=== PATIENT | male | born 1930 | race Caucasian/White ===

== ENCOUNTER 2017-07-07 13:29 | Inpatient (IN) | payer OTHER ==
[~2017-07-07] VITALS: Ht 180.3 cm; Wt 75.7 kg
[2017-07-07 13:29] VITALS: BP 191/89
[~2017-07-07 13:29] MED LIST: ASPI-482 PO; CLOP75TA PO; ERGO500027 PO; GABA-586 PO; HYDR28.3 TP; LEVO500T8 PO; LISI30TA4 PO; METO50TA2 PO; MICO14CR TP; NITR0.4T22 SL; OXYM30SP67 NS; PIRF267C PO
--- NOTE | 2017-07-07 13:55 | PHYS DOC ---
Past Medical History Past Medical History: CAD, COPD, GERD, High Cholesterol, Hypertension, Other Additional Past Medical Histor: PULM FIBROSIS,SUBCARINAL LYMPHADENOPATHY, Past Surgical History: Angioplasty, Other Additional Past Surgical Histo: STENTS,SINUS Alcohol Use: None Drug Use: None Adult General Chief Complaint Chief Complaint: multiple HPI HPI Patient is a 87 year old male who drove himself to the ED with multiple complaints. About a week ago, the patient was seen with chest pain and congestion and diagnosed with [facility]. He was started on doxycycline. He continues to have coughing and also discomfort across his anterior chest. 3 days ago, the patient fell in his home, with a head injury but no loss of consciousness. Patient states "it's healing up fine". Patient believes the doxycycline made him weak and fall. He says every time he gets put on antibiotics, he gets sick. Patient is concerned that maybe his pneumonia is not getting better. Patient denies feeling more short of air than usual. He does have COPD. He has home oxygen that he is supposed to use when he takes a walk. He hasn't felt up to taking a walk today. Denies fever or chills. He's had nausea but no vomiting. PCP Dr. Bakari Castaneda He also gets [facility] care at the [facility] in [place] [facility] Goldberg Review of Systems Review of Systems Constitutional: Denies fever or chills [] HENT: Denies nasal congestion or sore throat [] Respiratory: As in history of present illness Cardiovascular: He has had consistent pain across his chest since the diagnosis of pneumonia, it does not sound cardiac or cardiac complaint GI: Denies vomiting but has had nausea : Denies dysuria or hematuria [] Musculoskeletal: Denies back pain or joint pain , denies injury other than head Integument: Denies rash or skin lesions [] Neurologic: Denies headache, focal weakness or sensory changes [] Allergies Allergies Allergies Coded Allergies Type Severity Reaction Last Updated Verified Penicillins Allergy Intermediate 08/09/16 Yes Sulfa (Sulfonamide Antibiotics) Allergy Intermediate 08/09/16 Yes codeine Allergy Intermediate 08/09/16 Yes fluticasone Allergy Intermediate 08/09/16 Yes spironolactone Allergy Intermediate 08/09/16 Yes Physical Exam Physical Exam Constitutional: Well developed, well nourished, no acute distress, non-toxic appearance. Alert, ambulatory, mentating normally. Pulse ox on room air 97%. HENT: Normocephalic, bilateral external ears normal, oropharynx moist, nose normal. There is a healing abrasion and mild swelling on the center of the forehead at the hairline. Eyes: conjunctiva normal, no discharge. [] Neck: Normal range of motion, no stridor. [] Cardiovascular:Heart rate regular rhythm, no murmur [] Lungs & Thorax: Bilateral breath sounds clear to auscultation, mildly prolonged expiratory phase, good air movement throughout. Skin: Warm, dry, no erythema, no rash. [] Extremities: No tenderness, no cyanosis, no clubbing, ROM intact, no edema. [] Neurologic: Alert and oriented X 3, normal motor function, normal sensory function, no focal deficits noted. [] Current Patient Data Vital Signs Vital Signs Date Time Temp Pulse Resp B/P (MAP) Pulse Ox O2 Delivery O2 Flow Rate FiO2 07/07/17 13:29 97.7 61 16 191/89 (123) 97 Room Air 97.7 Lab Values Laboratory Tests Test 07/07/17 13:50 07/07/17 15:00 White Blood Count 14.2 x10^3/uL (4.0-11.0) H Red Blood Count 4.55 x10^6/uL (4.30-5.70) Hemoglobin 12.9 g/dL (13.0-17.5) L Hematocrit 39.6 % (39.0-53.0) Mean Corpuscular Volume 87 fL (79-100) Mean Corpuscular Hemoglobin 28 pg (25-35) Mean Corpuscular Hemoglobin Concent 33 g/dL (31-37) Red Cell Distribution Width 13.5 % (11.5-14.5) Platelet Count 324 x10^3/uL (140-400) # Neutrophils (%) (Auto) 65 % (31-73) Lymphocytes (%) (Auto) 22 % (24-48) L Monocytes (%) (Auto) 10 % (0-9) H Eosinophils (%) (Auto) 3 % (0-3) Basophils (%) (Auto) 0 % (0-3) Neutrophils # (Auto) 9.2 x10^3uL (1.8-7.7) H Lymphocytes # (Auto) 3.1 x10^3/uL (1.0-4.8) Monocytes # (Auto) 1.4 x10^3/uL (0.0-1.1) H Eosinophils # (Auto) 0.4 x10^3/uL (0.0-0.7) Basophils # (Auto) 0.0 x10^3/uL (0.0-0.2) Sodium Level 138 mmol/L (136-145) Potassium Level 4.0 mmol/L (3.5-5.1) Chloride Level 100 mmol/L (98-107) Carbon Dioxide Level 28 mmol/L (21-32) Anion Gap 10 (6-14) Blood Urea Nitrogen 51 mg/dL (8-26) H Creatinine 4.1 mg/dL (0.7-1.3) H Estimated GFR (Cockcroft-Gault) 13.9 BUN/Creatinine Ratio 12 (6-20) Glucose Level 126 mg/dL (70-99) H Calcium Level 8.7 mg/dL (8.5-10.1) Total Bilirubin 0.2 mg/dL (0.2-1.0) Aspartate Amino Transferase (AST) 19 U/L (15-37) Alanine Aminotransferase (ALT) 25 U/L (16-63) Alkaline Phosphatase 74 U/L (46-116) KX-Gix-I-Type Natriuretic Peptide 1643 pg/mL (0-449) H Total Protein 8.0 g/dL (6.4-8.2) Albumin 3.1 g/dL (3.4-5.0) L Albumin/Globulin Ratio 0.6 (1.0-1.7) L Urine Collection Type Unknown Urine Color Yellow Urine Clarity Clear Urine pH 5.5 Urine Specific [place] 1.015 Urine Protein >=300 mg/dL (NEG-TRACE) Urine Glucose (UA) 100 mg/dL (NEG) Urine Ketones (Stick) Negative mg/dL (NEG) Urine Blood Moderate (NEG) Urine Nitrite Negative (NEG) Urine Bilirubin Negative (NEG) Urine Urobilinogen Dipstick 0.2 mg/dL (0.2 mg/dL) Urine Leukocyte Esterase Negative (NEG) Urine RBC 6-10 /HPF (0-2) Urine WBC 0 /HPF (0-4) Urine Squamous Epithelial Cells Occ /LPF Urine Bacteria 0 /HPF (0-FEW) Urine Hyaline Casts Few /HPF Urine Mucus Mod /LPF Laboratory Tests 07/07/17 13:50 Laboratory Tests 07/07/17 13:50 EKG EKG [] Radiology/Procedures Radiology/Procedures [] Course & Med Decision Making Course & Med Decision Making Pertinent Labs and Imaging studies reviewed. (See chart for details) 87-year-old male presents ambulatory to the ED concerned that he may still have pneumonia, may not be getting better. He was started about a week ago today on doxycycline and has been taking it as directed. He doesn't feel better. He also notes that he fell 3 days ago and bumped his head without loss of consciousness. I recommended that we will check some lab tests, chest x-ray, and CT scan of his head. He is agreeable to the plan "as long as I don't have to be admitted". Chest x-ray reviewed by me, I do see an area in the left lower lobe that I believe is more opacity than a previous chest x-ray. No pulmonary edema. CT scan of the head read by the radiologist. No acute findings. Labs concerning for leukocytosis with a white count of 14, also worsened creatinine at 4.1. I discussed the patient with Dr. Bakari Castaneda and he and I agreed that the patient should be hospitalized with pneumonia that has failed outpatient antibiotics as well as worsened renal function. I went to discuss this plan with the patient. The patient adamantly refuses to be admitted to the hospital. He feels fine. He doesn't feel like he needs to be admitted. He is not that sick. He also has a cat at home and no one to take care of the cat. He absolutely refused to consider being admitted to the hospital. He states that he gets to feeling worse, he will make arrangements for someone to take care of his cat and come back to be admitted. Patient is not hypoxic, he is not dyspneic. He has not been vomiting. Although I prefer to hospitalize him, I don't think it's entirely unreasonable for him to try a different antibiotic as an outpatient. We talked about pulmonary toilet. He does have a nebulizer at home and I will write him for some albuterol for that. I discussed discharge with Dr. Castaneda. We agreed to discharge the patient on renally dosed Levaquin at 500 mg every other day. He was given his first dose here in the ED. Dr. Castaneda will be glad to see him back in the office in 2 or 3 days for recheck, sooner if worse. See instructions for plan. [] Micheal Disclaimer Dragon Disclaimer This electronic medical record was generated, in whole or in part, using a voice recognition dictation system. Departure Departure Impression: Primary Impression: Pneumonia Additional Impression: Acute renal insufficiency Disposition: HOME, SELF-CARE Admitting Physician: Bakari Castaneda Condition: STABLE Referrals: BAKARI CASTANEDA MD (PCP) Patient Instructions: Pneumonia, Adult Additional Instructions: As we discussed, I would like to admit you to the hospital for treatment of pneumonia, but you will not be admitted to the hospital. If you get worse, if your breathing gets worse or you feel worse, return to emergency. I discussed your case with Dr. Castaneda and we made the plan for your care together. He would like to see you back in the office in 2 or 3 days for a recheck. Call tomorrow for an appointment in 2 or 3 days. Or, if you prefer, you may have a recheck at the [facility] if they can get you in. We will treat your pneumonia with a different antibiotic. Stop taking doxycycline. Instead, we will put you on Levaquin. Because of your bad kidney function, you will take Levaquin only every other day. You had your first dose here in the emergency department. Your next dose is on Saturday around noon, then , then Saturday. To help clear the infection out of your lungs, and help your lungs work better, take a breathing treatment 4 times a day until you are feeling better. Rest at home and drink plenty of fluids. Return if you feel worse, if you are short of air, or if you are weaker or vomiting. Scripts Albuterol Sulfate (ALBUTEROL SULFATE NEB SOLN) 1.25 Mg/3 Ml Vial.neb 1 VIAL NEB Q4HRS for Wheezing, pneumonia, #75 ML Take a breathing treatment 4 times a day while being treated for pneumonia Prov: MAYRA CHUNG MD 07/07/17 Levofloxacin (LEVAQUIN) 500 Mg Tablet 1 TAB PO QODAY for pneumonia, #3 TAB Renal dosing every other day Had first dose in the emergency department 07/07 Next dose is due 8/15 Prov: MAYRA CHUNG MD 07/07/17 Problem Qualifiers MAYRA CHUNG MD Jul 07, 2017 13:55
[2017-07-07 14:00] LABS: BASO % 0 % (0-3); EOS % 3 % (0-3); HEMATOCRIT 39.6 % (39.0-53.0); HEMOGLOBIN 12.9 g/dL (13.0-17.5); LYMPH # 3.1 x10^3/uL (1.0-4.8); LYMPH % 22 % (24-48); MEAN CORPUSCULAR HEMOGLOBIN 28 pg (25-35); MEAN CORPUSCULAR HGB CONC 33 g/dL (31-37); MEAN CORPUSCULAR VOLUME 87 fL (79-100); MONO % 10 % (0-9); NEUT % 65 % (31-73); PLATELET COUNT 324 x10^3/uL (140-400); RED BLOOD COUNT 4.55 x10^6/uL (4.30-5.70); RED CELL DISTRIBUTION WIDTH 13.5 % (11.5-14.5); WHITE BLOOD COUNT 14.2 x10^3/uL (4.0-11.0)
[2017-07-07 14:12] LABS: CALCIUM 8.7 mg/dL (8.5-10.1); CREATININE 4.1 mg/dL (0.7-1.3); GFR 13.9
[2017-07-07 14:18] LABS: ALBUMIN 3.1 g/dL (3.4-5.0); ALBUMIN/GLOBULIN RATIO 0.6 (1.0-1.7); TOTAL BILIRUBIN 0.2 mg/dL (0.2-1.0)
--- NOTE | 2017-07-07 15:07 | RAD ---
CT scan of the head without contrast 07/07/2017 Clinical History: Fall with forehead swelling. Technique: Unenhanced, contiguous, 5 mm axial sections were obtained through the head. One or more of the following individualized dose reduction techniques were utilized for this study: 1. Automated exposure control. 2. Adjustment of the mA and/or kV according to patient size. 3. Use of iterative reconstruction technique. Findings: No previous studies are available for comparison. There is generalized parenchymal atrophy. Small scattered areas of decreased attenuation are seen within the periventricular and subcortical white matter of both cerebral hemispheres consistent with areas of small vessel ischemic disease. No acute parenchymal abnormality is seen. No extra-axial fluid collection is noted. No skull fracture is seen. Impression: . No acute intracranial abnormality is seen.
[2017-07-07 15:12] LABS: BILIRUBIN,URINE NEGATIVE (NEG); GLUCOSE,URINE 100 mg/dL (NEG); NITRITE,URINE NEGATIVE (NEG); PH,URINE 5.5; PROTEIN,URINE >=300 mg/dL (NEG-TRACE); UROBILINOGEN,URINE 0.2 mg/dL (0.2 mg/dL)
--- NOTE | 2017-07-07 15:17 | RAD ---
PA and lateral chest radiographs 07/07/2017 Clinical history: Cough and shortness of breath. PA and lateral digital radiographs of the chest were obtained. Comparison study is dated 08/09/2016. The cardiac silhouette is mildly enlarged. The thoracic aorta is tortuous. Atherosclerotic calcification of the thoracic aorta is seen. Emphysematous changes are seen involving both lungs. Areas of scarring are seen involving the right midlung and left lower lobe. No acute pulmonary infiltrate is seen. No pneumothorax or pleural effusion is noted. Degenerative changes are seen involving the thoracic spine. Impression: No acute pulmonary infiltrate is seen.
[2017-07-07 15:20] LABS: BACTERIA,URINE 0 /HPF (0-FEW); SQUAMOUS EPITHELIAL CELL,UR OCC /LPF; WBC,URINE 0 /HPF (0-4)
[2017-07-07] MEDS ORDERED: LEVO500T59 PO (15:37)
[2017-07-07] MEDS ORDERED: ALBU1.25 NEB (15:37)
[2017-07-07] MEDS ORDERED: IPRATRPIUM/ALBUTEROL 0.5/2.5MG 3 ML NEBU. NEB ONE (15:45)
--- NOTE | 2017-07-08 01:29 | ACF ---
Admission Forms Criteria PNEUMONIA, COMMUNITY ACQUIRED Clinical Indications for Admission to Inpatient Care (Place 'X' for any and all applicable criteria): Admission to inpatient status for two midnights or more is indicated for ANY ONE of the following (1)(2)(3): [ ]I. Hypoxia [ ]II. Hemodynamic instability [ ]III. Altered mental status that is severe or persistent [ ]IV. Dehydration that is severe or persistent. [ ]V. Bacteremia [X ]. Moderate-risk or high-risk category patients (Pneumonia Severity Index ( PSI) class IV or V, or CURB-65 score of 3 or greater). [ ]VII. Intermediate-risk category patients (e.g., PSI class III or CURB-65 score 2) who do not improve with outpatient and observation care treatment [ ]VIII. Outpatient treatment failure as indicated by 1 or more of the following(9): [ ]a) Failure to respond to antibiotic (eg, resistant organism) [ ]b) Clinically significant adverse effects from medication (eg, vomiting) [ ]c) Complications of pneumonia (eg, empyema, bacteremia) [ ]d) Significant worsening of comorbid cond necessitating inpatient care (eg, chronic heart failure) [ ]IX. Appropriate diagnostic testing and treatment unavailable in outpatient or recovery facility (eg, testing or infection control measures unavailable) [ ]X. Respiratory finding (eg. tachypnea) that do not respond to outpatient observation care treatment [ ]XI. Complicated pleural effusions (eg, emphysema, exudative, loculated) [ ]XII. Immunocompromised patients (e.g., AIDS, chronic steroid use) at moderate or high risk based on clinical evaluation. Extended stay beyond goal length of stay may be needed for (20) [ ]a) Unclear diagnosis [ ]b) Pleural disease [ ]c) Severe pneumonia or treatment failure [ ]d) Respiratory failure [ ]e) New onset hyponatremia (serum Na concentration less than 135 mEq/L(mmol/ L) [ ]f) Clinically significant comorbid illness (eg, heart failure, atrial fibrillation with rapid heart rate, alcohol withdrawal, renal insufficiency)(34)(35) [ ]g) Comorbid acute exacerbation of COPD(36) [ ]h) Concomitant diagnosis of malignancy [ ]i) Concomitant altered mental status [ ]j) Culture-identified Gram-negative or antibiotic-resistant organism (eg, Pseudomonas, methicillin-resistant Staphylococcus aureus MRSA)(30) [ ]k) Healthcare-associated pneumonia (36) The original [facility] content created by [facility] has been revised. The portions of the content which have been revised are identified through the use of italic text, and [facility] has neither reviewed nor approved the modified material. All other unmodified content is copyright [facility]. Please see references footnoted in the original [email or web address] edition 2015 Admission Criteria Met?: Yes IRASEMA DIALLO Jul 08, 2017 01:29
== END 2017-07-07 18:27 | disposition left against medical advice (07) | DRG 194 ==
LOC: ER 13:29 → 6 SOUTH 15:15
PROVIDERS: ADMIT Family Medicine; ATTEND Family Medicine
DX: J18.9 Pneumonia, unspecified organism (principal); J44.0 Chronic obstructive pulmonary disease with (acute) lower respiratory infection; I25.10 Atherosclerotic heart disease of native coronary artery without angina pectoris; I10 Essential (primary) hypertension; E78.00 Pure hypercholesterolemia, unspecified; J84.10 Pulmonary fibrosis, unspecified; K21.9 Gastro-esophageal reflux disease without esophagitis; Z53.21 Procedure and treatment not carried out due to patient leaving prior to being seen by health care provider; N28.9 Disorder of kidney and ureter, unspecified; Z99.81 Dependence on supplemental oxygen; Z88.5 Allergy status to narcotic agent; Z88.0 Allergy status to penicillin; Z88.2 Allergy status to sulfonamides; Z88.8 Allergy status to other drugs, medicaments and biological substances
CPT/HCPCS: 36415; 70450; 71020; 80053; 81001; 83880; 85025; 94250; 94640; 99285; J7620

== ENCOUNTER 2018-11-19 08:54 | Emergency (ER) | payer OTHER ==
[~2018-11-19] VITALS: Ht 175.3 cm; Wt 74.8 kg
[~2018-11-19 08:54] MED LIST changes: +ALBU1.25 NEB; +CARB15DR3 EACHEYE; +CEFD300C PO; +CHOL10003 PO; +DOCU-109 PO; +FURO80TA72 PO; -GABA-586 PO; +GABA300C18 PO; +LEVO500T59 PO; +LISI-130 PO; +METO100T7 PO; -METO50TA2 PO; +METO50TA6 PO; +[UNRECOGNIZED DRUG - CODE] PO
[2018-11-19 10:09] VITALS: BP 172/71
--- NOTE | 2018-11-19 10:47 | PHYS DOC ---
Past Medical History Past Medical History: Renal Failure Additional Past Medical Histor: PULM FIBROSIS,SUBCARINAL LYMPHADENOPATHY, Past Surgical History: Other Additional Past Surgical Histo: STENTS,SINUS, peritoneal dialysis Alcohol Use: None Drug Use: None Adult General Chief Complaint Chief Complaint: DIALYSIS PROBLEM HPI HPI Patient is a 88 year old male who presents with a request to have his dialysis catheter removed. He states that he went to dialysis and told him to remove the catheter. They stated he would have to go to the hospital. I explained to him that we do not pull dialysis catheters in the emergency department. We would do a dressing change. The patient states that he no longer needs the catheter because his blood pressure is under control. I explained to him that the dialysis catheter was not control his blood pressure but rather to clean his blood because his kidneys aren't working. I did explicitly stated to the patient that if the catheter was removed he would not be able to undergo dialysis and would subsequently . The patient's reply was "I'll anyway." Review of Systems Review of Systems Constitutional: Denies fever or chills [] Eyes: Denies change in visual acuity, redness, or eye pain [] HENT: Denies nasal congestion or sore throat [] Respiratory: Denies cough or shortness of breath [] Cardiovascular: No additional information not addressed in HPI [] GI: Denies abdominal pain, nausea, vomiting, bloody stools or diarrhea [] : Denies dysuria or hematuria [] Musculoskeletal: Denies back pain or joint pain [] Integument: Denies rash or skin lesions [] Neurologic: Denies headache, focal weakness or sensory changes [] Endocrine: Denies polyuria or polydipsia [] All other systems were reviewed and found to be within normal limits, except as documented in this note. Allergies Allergies Allergies Coded Allergies Type Severity Reaction Last Updated Verified Penicillins Allergy Intermediate 08/09/16 Yes Sulfa (Sulfonamide Antibiotics) Allergy Intermediate 08/09/16 Yes cephalexin Allergy Intermediate 10/27/18 Yes ciprofloxacin Allergy Intermediate 10/23/18 Yes doxycycline Allergy Intermediate 10/23/18 Yes erythromycin base Allergy Intermediate 10/23/18 Yes fluticasone Allergy Intermediate 08/09/16 Yes isosorbide Allergy Intermediate 10/23/18 Yes nifedipine Allergy Intermediate 10/23/18 Yes prednisone Allergy Intermediate 10/23/18 Yes salmeterol Allergy Intermediate DUONEB [place] 8/13/17 Yes spironolactone Allergy Intermediate 08/09/16 Yes tamsulosin Allergy Intermediate 10/23/18 Yes codeine Adverse Reaction Intermediate Nausea/Vomiting 10/25/18 Yes Physical Exam Physical Exam Constitutional: Well developed, well nourished, no acute distress, non-toxic appearance. [] HENT: Normocephalic, atraumatic, bilateral external ears normal, oropharynx moist, no oral exudates, nose normal. [] Eyes: PERRLA, EOMI, conjunctiva normal, no discharge. [] Neck: Normal range of motion, no tenderness, supple, no stridor. [] Cardiovascular:Heart rate regular rhythm, no murmur [] Lungs & Thorax: Bilateral breath sounds clear to auscultation [] Abdomen: Bowel sounds normal, soft, no tenderness, no masses, no pulsatile masses. [] Skin: Warm, dry, no erythema, no rash. [] Back: No tenderness, no CVA tenderness. [] Extremities: No tenderness, no cyanosis, no clubbing, ROM intact, no edema. [] Neurologic: Alert and oriented X 3, normal motor function, normal sensory function, no focal deficits noted. [] Psychologic: Affect normal, judgement normal, mood normal. [] Current Patient Data Vital Signs Vital Signs Date Time Temp Pulse Resp B/P (MAP) Pulse Ox O2 Delivery O2 Flow Rate FiO2 11/19/18 10:09 97.5 54 18 172/71 (104) 95 Room Air 97.5 EKG EKG [] Radiology/Procedures Radiology/Procedures [] Course & Med Decision Making Course & Med Decision Making Pertinent Labs and Imaging studies reviewed. (See chart for details) []I spoke with the nurse practitioner at the [place] who arranged for the patient to meet with nephrology on site. The patient's catheter dressing was changed. The patient is to report directly to the office in [place] at the [place]. The patient is in agreement with this plan. Staff Physician Addendum: I was working in the ER during the course of this patient's visit. I was available for consultation as needed, but I was not directly involved in the care of this patient. Dragon Disclaimer Dragon Disclaimer This electronic medical record was generated, in whole or in part, using a voice recognition dictation system. 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 DAMIEN SEBASTIAN APRN Nov 19, 2018 10:47 MICHELET FENTON MD Nov 24, 2018 20:15
== END 2018-11-19 11:15 | disposition home or self-care (01) ==
LOC: ER 08:54
DX: Z49.01 Encounter for fitting and adjustment of extracorporeal dialysis catheter (principal); N19 Unspecified kidney failure; Z88.0 Allergy status to penicillin; Z88.1 Allergy status to other antibiotic agents; Z88.2 Allergy status to sulfonamides; Z88.5 Allergy status to narcotic agent; Z88.8 Allergy status to other drugs, medicaments and biological substances
CPT/HCPCS: 99283

== ENCOUNTER 2018-11-21 09:30 | Emergency (ER) | payer OTHER ==
[~2018-11-21] VITALS: Ht 175.3 cm; Wt 69.4 kg
--- NOTE | 2018-11-21 10:28 | RAD ---
Chest radiograph 11/21/2018 10:02 AM INDICATION: Missed dialysis COMPARISON: October 27, 2018 TECHNIQUE: Frontal and lateral views of the chest are provided. FINDINGS: The cardiomediastinal silhouette is within normal limits. Right chest wall dialysis catheter is in similar position. There are no pleural effusions. There is no pulmonary vascular congestion. There is no pneumothorax. Mild interstitial changes appear chronic. There may be subtle increase interstitial opacity in the lateral inferior aspect of the right upper lobe. No significant osseous abnormality is identified. IMPRESSION: Chronic interstitial changes with more focal interstitial opacity in the lateral right upper lobe. Findings may represent subsegmental atelectasis versus developing infiltrate. Electronically signed by: Gayle Beverly MD (11/21/2018 10:25 AM) [id number]
[2018-11-21 10:50] LABS: BASO # 0.1 x10^3/uL (0.0-0.2); BASO % 1 % (0-3); EOS # 0.4 x10^3/uL (0.0-0.7); EOS % 4 % (0-3); HEMATOCRIT 37.8 % (39.0-53.0); HEMOGLOBIN 12.9 g/dL (13.0-17.5); LYMPH # 2.2 x10^3/uL (1.0-4.8); LYMPH % 24 % (24-48); MEAN CORPUSCULAR HEMOGLOBIN 30 pg (25-35); MEAN CORPUSCULAR HGB CONC 34 g/dL (31-37); MEAN CORPUSCULAR VOLUME 89 fL (79-100); MONO # 0.8 x10^3/uL (0.0-1.1); MONO % 9 % (0-9); NEUT # 5.6 x10^3uL (1.8-7.7); NEUT % 62 % (31-73); PLATELET COUNT 237 x10^3/uL (140-400); RED BLOOD COUNT 4.26 x10^6/uL (4.30-5.70); RED CELL DISTRIBUTION WIDTH 13.1 % (11.5-14.5)
[2018-11-21 11:03] LABS: CALCIUM 8.9 mg/dL (8.5-10.1); CREATININE 6.2 mg/dL (0.7-1.3); GFR 8.6; POTASSIUM 4.1 mmol/L (3.5-5.1)
--- NOTE | 2018-11-21 11:07 | EKG ---
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
[2018-11-21 11:08] LABS: ALBUMIN 3.3 g/dL (3.4-5.0); ALBUMIN/GLOBULIN RATIO 0.7 (1.0-1.7); TOTAL BILIRUBIN 0.4 mg/dL (0.2-1.0); TOTAL PROTEIN 7.9 g/dL (6.4-8.2)
[2018-11-21 11:09] VITALS: BP 151/69
--- NOTE | 2018-11-21 11:31 | PHYS DOC ---
Past Medical History Past Medical History: Hypertension, Renal Failure Additional Past Medical Histor: PULM FIBROSIS,SUBCARINAL LYMPHADENOPATHY, Past Surgical History: Other Additional Past Surgical Histo: STENTS,SINUS, peritoneal dialysis, R ant chest dialysis shunt Alcohol Use: None Drug Use: None Adult General Chief Complaint Chief Complaint: OTHER COMPLAINTS HPI HPI 88-year-old male presenting to the emergency department today after being told to come in to have his labs drawn. He is not had dialysis for approximately 2 weeks. He denies any symptoms. Onset today. Location generalized. Duration constant. No alleviating factors. Review of systems is negative for chest pain shortness of breath fevers chills headache nausea vomiting abdominal pain dysuria diarrhea. All other review of systems is negative unless otherwise noted in history of present illness. ED course: 88-year-old male presenting the emergency department today to have his labs drawn and after missing dialysis. Vitals unremarkable. Patient has elevated proBNP but is not requiring oxygen and has normal work of breathing with clear lungs bilaterally. Creatinine is elevated consistent with his renal failure. Potassium is 4.1. EKG obtained and reviewed by myself shows sinus rhythm with a regular rate. ST segments congruent. Not suggestive of ACS. Otherwise lipase is minimally elevated. Patient remains asymptomatic in the emergency department. We will refer him to get dialysis as previously scheduled. He will only be able to get dialysis on Saturday so I instructed him to come back in 2 days for repeat blood tests to ensure that his K+ is not going up. The patient has been examined and was not found to have an emergency medical condition. The patient was then discharged home in stable condition to follow up with their primary care physician over the next 1-2 days. They were to return if their symptoms worsened or if they were concerned for any reason. They were also instructed to return to the emergency department if they were unable to get the recommended and appropriate follow-up. [id number] discharge instructions and return precautions were given. Patient's questions were answered to their satisfaction. Patient is comfortable with plan. Review of Systems Review of Systems SEE ABOVE. Allergies Allergies Allergies Coded Allergies Type Severity Reaction Last Updated Verified Penicillins Allergy Intermediate 08/09/16 Yes Sulfa (Sulfonamide Antibiotics) Allergy Intermediate 08/09/16 Yes cephalexin Allergy Intermediate 10/27/18 Yes ciprofloxacin Allergy Intermediate 10/23/18 Yes doxycycline Allergy Intermediate 10/23/18 Yes erythromycin base Allergy Intermediate 10/23/18 Yes fluticasone Allergy Intermediate 08/09/16 Yes isosorbide Allergy Intermediate 10/23/18 Yes nifedipine Allergy Intermediate 10/23/18 Yes prednisone Allergy Intermediate 10/23/18 Yes salmeterol Allergy Intermediate DUONEB [place] 07/07/17 Yes spironolactone Allergy Intermediate 08/09/16 Yes tamsulosin Allergy Intermediate 10/23/18 Yes codeine Adverse Reaction Intermediate Nausea/Vomiting 10/25/18 Yes Physical Exam Physical Exam SEE ABOVE Constitutional: Well developed, well nourished, no acute distress, non-toxic appearance. HENT: Normocephalic, atraumatic, bilateral external ears normal, oropharynx moist, no oral exudates, nose normal. [] Eyes: PERRLA, EOMI, conjunctiva normal, no discharge. Neck: Normal range of motion, no tenderness, supple, no stridor. [] Cardiovascular:Heart rate regular rhythm, no murmur Lungs & Thorax: Bilateral breath sounds clear to auscultation [] Abdomen: Bowel sounds normal, soft, no tenderness, no masses, no pulsatile masses. Skin: Warm, dry, no erythema, no rash. [] Back: No tenderness, no CVA tenderness. Extremities: No tenderness, no cyanosis, no clubbing, ROM intact, no edema. Neurologic: Alert and oriented X 3, normal motor function, normal sensory function, no focal deficits noted. [] Psychologic: Affect normal, judgement normal, mood normal. [] Current Patient Data Vital Signs Vital Signs Date Time Temp Pulse Resp B/P (MAP) Pulse Ox O2 Delivery O2 Flow Rate FiO2 11/21/18 11:09 52 19 151/69 (96) 97 Room Air 11/21/18 09:30 98.0 98.0 Lab Values Laboratory Tests Test 11/21/18 10:33 White Blood Count 9.0 x10^3/uL (4.0-11.0) Red Blood Count 4.26 x10^6/uL (4.30-5.70) L Hemoglobin 12.9 g/dL (13.0-17.5) L Hematocrit 37.8 % (39.0-53.0) L Mean Corpuscular Volume 89 fL (79-100) Mean Corpuscular Hemoglobin 30 pg (25-35) Mean Corpuscular Hemoglobin Concent 34 g/dL (31-37) Red Cell Distribution Width 13.1 % (11.5-14.5) Platelet Count 237 x10^3/uL (140-400) Neutrophils (%) (Auto) 62 % (31-73) Lymphocytes (%) (Auto) 24 % (24-48) Monocytes (%) (Auto) 9 % (0-9) Eosinophils (%) (Auto) 4 % (0-3) H Basophils (%) (Auto) 1 % (0-3) Neutrophils # (Auto) 5.6 x10^3uL (1.8-7.7) Lymphocytes # (Auto) 2.2 x10^3/uL (1.0-4.8) Monocytes # (Auto) 0.8 x10^3/uL (0.0-1.1) Eosinophils # (Auto) 0.4 x10^3/uL (0.0-0.7) Basophils # (Auto) 0.1 x10^3/uL (0.0-0.2) Sodium Level 141 mmol/L (136-145) Potassium Level 4.1 mmol/L (3.5-5.1) Chloride Level 100 mmol/L (98-107) Carbon Dioxide Level 29 mmol/L (21-32) Anion Gap 12 (6-14) Blood Urea Nitrogen 52 mg/dL (8-26) H Creatinine 6.2 mg/dL (0.7-1.3) H Estimated GFR (Cockcroft-Gault) 8.6 BUN/Creatinine Ratio 8 (6-20) Glucose Level 102 mg/dL (70-99) H Calcium Level 8.9 mg/dL (8.5-10.1) Total Bilirubin 0.4 mg/dL (0.2-1.0) Aspartate Amino Transferase (AST) 19 U/L (15-37) Alanine Aminotransferase (ALT) 17 U/L (16-63) Alkaline Phosphatase 78 U/L (46-116) Troponin I Quantitative < 0.017 ng/mL (0.000-0.055) HL-Dvu-R-Type Natriuretic Peptide 3515 pg/mL (0-449) H Total Protein 7.9 g/dL (6.4-8.2) Albumin 3.3 g/dL (3.4-5.0) L Albumin/Globulin Ratio 0.7 (1.0-1.7) L Lipase 653 U/L (73-393) H Laboratory Tests 11/21/18 10:33 Laboratory Tests 11/21/18 10:33 EKG EKG [] Radiology/Procedures Radiology/Procedures [] Course & Med Decision Making Course & Med Decision Making Pertinent Labs and Imaging studies reviewed. (See chart for details) [] Dragon Disclaimer Dragon Disclaimer This electronic medical record was generated, in whole or in part, using a voice recognition dictation system. Departure Departure Impression: Primary Impression: Encounter for medical screening examination Disposition: HOME, SELF-CARE Condition: STABLE Referrals: EARL ROLON (PCP) Patient Instructions: Kidney Failure Additional Instructions: Thank you for allowing us to participate in your care today. Return to the emergency department you have any new or worsening symptoms, or if you are concerned for any reason. Return to emergency department if you have any new or concerning symptoms including but not limited to fever, chills, nausea, vomiting, intractable pain, any new rashes, chest pain, shortness of air , uncontrolled bleeding, difficulty breathing, and/or vision loss. Follow up with to be dialysed in 1-2 days. If you cannot get dialyzed within the next 2 days, return to the emergency department for reexamination. Call your Primary Doctor tomorrow and inform them of your visit today. This is important because your potassium level can go up without dialysis and it will need to be rechecked. If you do not have a primary care provider we are happy to provide you with a list of our primary care providers contact information. This condition should be evaluated by your primary care physician and any recommended consulting services for continued management within 2 days after discharge. If at any time, you are having difficulty getting into your primary care doctor or a specialist, return to the emergency department. TERRI SORIANO MD Nov 21, 2018 11:31
== END 2018-11-21 11:47 | disposition home or self-care (01) ==
LOC: ER 09:30
DX: Z00.8 Encounter for other general examination (principal); Z88.0 Allergy status to penicillin; Z88.1 Allergy status to other antibiotic agents; Z88.2 Allergy status to sulfonamides; Z88.5 Allergy status to narcotic agent; Z88.8 Allergy status to other drugs, medicaments and biological substances; I10 Essential (primary) hypertension
CPT/HCPCS: 36415; 71046; 80053; 83690; 83880; 84484; 85025; 93005; 99284-25

== ENCOUNTER 2020-11-19 18:58 | Inpatient (IN) | payer MEDICARE, OTHER ==
[~2020-11-19] VITALS: Ht 177.8 cm; Wt 65.3 kg
[~2020-11-19 18:58] MED LIST changes: -MICO14CR TP; +MICO14CR3 TP; -PIRF267C PO; +PIRF267C2 PO
[2020-11-19] MEDS ORDERED: VANCOMYCIN 1GM IVPB FOR OMNI 250 ML IV ONE (19:30)
--- NOTE | 2020-11-19 19:45 | PHYS DOC ---
Past Medical History Past Medical History: Hypertension, Renal Failure Additional Past Medical Histor: PULM FIBROSIS,SUBCARINAL LYMPHADENOPATHY, Past Surgical History: Other Additional Past Surgical Histo: STENTS,SINUS, peritoneal dialysis, R ant chest dialysis shunt Smoking Status: Never Smoker Alcohol Use: None Drug Use: None General Adult EDM: Chief Complaint: TOE PROBLEM HPI: HPI: Patient is a 89 year old male who arrives via EMS with a chief complaint of swelling, necrosis and erythema to the right foot that originates at the right third toe and radiates up the foot. Patient reportedly is on hospice but was sent in for evaluation for of this necrotic toe and states that he cannot take antibiotics. Patient describes mild to moderate pain is worse with palpation. There is been no reported fever. Patient is described as a discomfort. Review of Systems: Review of Systems: Constitutional: Denies fever or chills. [] Eyes: Denies change in visual acuity. [] HENT: Denies nasal congestion or sore throat. [] Respiratory: Has a cough but no shortness of breath. [] Cardiovascular: Denies chest pain or edema. [] GI: Denies abdominal pain, nausea, vomiting, bloody stools or diarrhea. [] : Denies dysuria. [] Musculoskeletal: Denies back pain or joint pain. [] Integument: Mild erythema and necrosis to the right middle toe with spreading erythema of the foot Neurologic: Denies headache, focal weakness or sensory changes. [] Endocrine: Denies polyuria or polydipsia. [] Lymphatic: Denies swollen glands. [] Psychiatric: Denies depression or anxiety. [] Heart Score: Risk Factors: Risk Factors: DM, Current or recent (<one month) smoker, HTN, HLP, family history of CAD, obesity. Risk Scores: Score 0 - 3: 2.5% MACE over next 6 weeks - Discharge Home Score 4 - 6: 20.3% MACE over next 6 weeks - Admit for Clinical Observation Score 7 - 10: 72.7% MACE over next 6 weeks - Early Invasive Strategies Current Medications: Current Medications Medications (Trade) Dose Ordered Sig/Andrés Start Time Stop Time Status Last Admin Dose Admin Vancomycin HCl 250 ml @ 250 mls/hr 1X ONCE 11/19/20 19:30 11/19/20 20:29 Allergies: Allergies: Allergies Coded Allergies Type Severity Reaction Last Updated Verified Penicillins Allergy Intermediate 08/09/16 Yes Sulfa (Sulfonamide Antibiotics) Allergy Intermediate 08/09/16 Yes cephalexin Allergy Intermediate 10/27/18 Yes ciprofloxacin Allergy Intermediate 10/23/18 Yes doxycycline Allergy Intermediate 10/23/18 Yes erythromycin base Allergy Intermediate 10/23/18 Yes fluticasone Allergy Intermediate 08/09/16 Yes isosorbide Allergy Intermediate 10/23/18 Yes nifedipine Allergy Intermediate 10/23/18 Yes prednisone Allergy Intermediate 10/23/18 Yes salmeterol Allergy Intermediate DUONEB OK 07/07/17 Yes spironolactone Allergy Intermediate 08/09/16 Yes tamsulosin Allergy Intermediate 10/23/18 Yes JACK Inhibitors Allergy Unknown 11/19/20 Yes codeine Adverse Reaction Intermediate Nausea/Vomiting 10/25/18 Yes Physical Exam: PE: Constitutional: Well developed, well nourished, no acute distress, non-toxic appearance. [] HENT: Normocephalic, atraumatic, bilateral external ears normal, no trismus, nose normal. [] Eyes: PERRLA, EOMI, conjunctiva normal, no discharge. [] Neck: Normal range of motion, no tenderness, supple, no stridor. [] No meningeal signs Cardiovascular:Heart rate regular rhythm, dorsalis pedis pulse 1+ bilateral lower extremities Lungs & Thorax: Diminished breath sounds bilaterally Abdomen: soft, no tenderness, no masses, no pulsatile masses. [] Skin: Necrotic right third toe with spreading erythema of the foot Back: No tenderness, no CVA tenderness. [] Extremities: Necrotic right third toe with spreading erythema of the foot Neurologic: Alert and mildly confused, normal motor function, normal sensory function, no focal deficits noted. [] Psychologic: Affect normal, judgement normal, mood normal. [] Current Patient Data: Labs: Laboratory Tests Test 11/19/20 19:49 White Blood Count 13.2 x10^3/uL Red Blood Count 3.72 x10^6/uL Hemoglobin 10.5 g/dL Hematocrit 32.3 % Mean Corpuscular Volume 87 fL Mean Corpuscular Hemoglobin 28 pg Mean Corpuscular Hemoglobin Concent 33 g/dL Red Cell Distribution Width 14.3 % Platelet Count 271 x10^3/uL Neutrophils (%) (Auto) 72 % Lymphocytes (%) (Auto) 13 % Monocytes (%) (Auto) 10 % Eosinophils (%) (Auto) 3 % Basophils (%) (Auto) 1 % Neutrophils # (Auto) 9.6 x10^3/uL Lymphocytes # (Auto) 1.7 x10^3/uL Monocytes # (Auto) 1.4 x10^3/uL Eosinophils # (Auto) 0.4 x10^3/uL Basophils # (Auto) 0.2 x10^3/uL Prothrombin Time 13.3 SEC Prothromb Time International Ratio 1.1 Activated Partial Thromboplast Time 39 SEC Sodium Level 135 mmol/L Potassium Level 4.8 mmol/L Chloride Level 99 mmol/L Carbon Dioxide Level 24 mmol/L Anion Gap 12 Blood Urea Nitrogen 84 mg/dL Creatinine 7.3 mg/dL Estimated GFR (Cockcroft-Gault) 7.1 BUN/Creatinine Ratio 12 Glucose Level 119 mg/dL Lactic Acid Level 1.1 mmol/L Calcium Level 9.3 mg/dL Total Bilirubin 0.2 mg/dL Aspartate Amino Transf (AST/SGOT) 14 U/L Alanine Aminotransferase (ALT/SGPT) 18 U/L Alkaline Phosphatase 115 U/L C-Reactive Protein, Quantitative 115.5 mg/L Total Protein 8.5 g/dL Albumin 3.2 g/dL Albumin/Globulin Ratio 0.6 Current Medications Medications (Trade) Dose Ordered Sig/Andrés Route PRN Reason Start Time Stop Time Status Last Admin Dose Admin Vancomycin HCl 250 ml @ 250 mls/hr 1X ONCE IV 11/19/20 19:30 11/19/20 20:29 11/19/20 20:08 Ondansetron HCl (Zofran) 4 mg PRN Q8HRS PRN IV NAUSEA/VOMITING 11/19/20 20:30 11/20/20 20:29 EKG: EKG: [] EKG interpreted by me normal sinus rhythm with rate of 76, poor quality due to wavy baseline, right axis deviation, nonspecific ST changes Radiology/Procedures: Radiology/Procedures: [][facility] [address] [place] [address] IMAGING REPORT Signed PATIENT: SANG EMERSON ACCOUNT: [id number] : 1930 LOCATION: ER AGE: 89 SEX: M EXAM STATUS: REG ER ORD. PHYSICIAN: LUIS MIGUEL HOBSON MD REASON: RIGHT 3RD TOE NECROSIS PROCEDURE: FOOT RIGHT 3V Examination: 3 views of the right foot HISTORY: History of right third toe necrosis COMPARISON: None available Findings/ impression: The alignment of the tarsal bones, tarsometatarsal joints, metatarsophalangeal joints, interphalangeal joints grossly appears unremarkable. No evidence of cortical disruption identified to suggest osteomyelitis on this radiograph. If clinical suspicion for osteomyelitis persists, recommend follow-up nonemergent MRI. Electronically signed by: Marco Kam MD (11/19/2020 8:01 PM) [id number] DICTATED and SIGNED BY: MARCO KAM MD DATE: 11/19/[id number] 0 [facility] [address] [place] [address] IMAGING REPORT Signed PATIENT: SANG EMERSON ACCOUNT: [id number] : 1930 LOCATION: ER AGE: 89 SEX: M EXAM STATUS: REG ER ORD. PHYSICIAN: LUIS MIGUEL HOBSON MD REASON: PREOP Foot operation, FX toe PROCEDURE: PORTABLE CHEST 1V EXAM: CHEST 1 VIEW History: Preop COMPARISON: 11/21/2018 TECHNIQUE: Single portable radiograph of the chest Findings/ impression: Low lung volumes and technique accentuates heart size and pulmonary vascularity. Moderate prominent appearing bilateral interstitial lung markings likely chronic interstitial changes with patchy airspace opacities identified in the bilateral lungs likely atelectasis or infiltrates. Electronically signed by: Marco Kam MD (11/19/2020 8:32 PM) [id number] DICTATED and SIGNED BY: MARCO KAM MD DATE: 11/19/[id number] 0 Course & Med Decision Making: Course & Med Decision Making Pertinent Labs and Imaging studies reviewed. (See chart for details) [] 89-year-old male on hospice presents with necrosis of the right third toe. Patient has ascending cellulitis associated with this. Nurse discussed with patient's director of casework and we will treat for infection with IV antibiotics due to his multiple allergies. I will admit the patient to the hospital with a vascular surgery consult. He may need a toe amputation and then may go back on hospice. I discussed the case with Dr. Goodrich who will be admitting physician. Micheal Disclaimer: Micheal Disclaimer: This electronic medical record was generated, in whole or in part, using a voice recognition dictation system. Departure Departure Impression: Primary Impression: Gangrene of toe of right foot Additional Impression: Chronic renal failure Disposition: 09 ADMITTED INPT THIS HOSP Admitting Physician: ALEJANDRO (ABILIO) Condition: STABLE Referrals: EARL ROLON (PCP) LUIS MIGUEL HOBSON MD Nov 19, 2020 19:45
[2020-11-19 20:00] LABS: BASO # 0.2 x10^3/uL (0.0-0.2); BASO % 1 % (0-3); EOS # 0.4 x10^3/uL (0.0-0.7); EOS % 3 % (0-3); HEMATOCRIT 32.3 % (39.0-53.0); HEMOGLOBIN 10.5 g/dL (13.0-17.5); LYMPH # 1.7 x10^3/uL (1.0-4.8); LYMPH % 13 % (24-48); MEAN CORPUSCULAR HEMOGLOBIN 28 pg (25-35); MEAN CORPUSCULAR HGB CONC 33 g/dL (31-37); MEAN CORPUSCULAR VOLUME 87 fL (79-100); MONO # 1.4 x10^3/uL (0.0-1.1); MONO % 10 % (0-9); NEUT # 9.6 x10^3/uL (1.8-7.7); NEUT % 72 % (31-73); PLATELET COUNT 271 x10^3/uL (140-400); RED BLOOD COUNT 3.72 x10^6/uL (4.30-5.70); RED CELL DISTRIBUTION WIDTH 14.3 % (11.5-14.5); WHITE BLOOD COUNT 13.2 x10^3/uL (4.0-11.0)
--- NOTE | 2020-11-19 20:04 | RAD ---
Examination: 3 views of the right foot HISTORY: History of right third toe necrosis COMPARISON: None available Findings/ impression: The alignment of the tarsal bones, tarsometatarsal joints, metatarsophalangeal joints, interphalangea l joints grossly appears unremarkable. No evidence of cortical disruption identified to suggest osteo myelitis on this radiograph. If clinical suspicion for osteomyelitis persists, recommend follow-up no nemergent MRI. Electronically signed by: Marco Kam MD (11/19/2020 8:01 PM) [id number]
[2020-11-19 20:08] LABS: CALCIUM 9.3 mg/dL (8.5-10.1); CREATININE 7.3 mg/dL (0.7-1.3); GFR 7.1; POTASSIUM 4.8 mmol/L (3.5-5.1)
[2020-11-19 20:09] LABS: PROTHROMBIN TIME PATIENT 13.3 SEC (11.7-14.0)
[2020-11-19 20:14] LABS: ALBUMIN 3.2 g/dL (3.4-5.0); ALBUMIN/GLOBULIN RATIO 0.6 (1.0-1.7); C-REACTIVE PROTEIN 115.5 mg/L (0-3.3); TOTAL BILIRUBIN 0.2 mg/dL (0.2-1.0); TOTAL PROTEIN 8.5 g/dL (6.4-8.2)
[2020-11-19] MEDS ORDERED: ONDANSETRON PF 4 MG/2 ML VIAL. IV PRN (20:30)
--- NOTE | 2020-11-19 20:35 | RAD ---
EXAM: CHEST 1 VIEW History: Preop COMPARISON: 11/21/2018 TECHNIQUE: Single portable radiograph of the chest Findings/ impression: Low lung volumes and technique accentuates heart size and pulmonary vascularity. Moderate prominent a ppearing bilateral interstitial lung markings likely chronic interstitial changes with patchy airspac e opacities identified in the bilateral lungs likely atelectasis or infiltrates. Electronically signed by: Marco Kam MD (11/19/2020 8:32 PM) [email or web address]
[2020-11-19] MEDS ORDERED: fentaNYL PF VIAL 100 MCG/2 ML VIAL IVP PRN (23:45)
[2020-11-19] MEDS ORDERED: ACETAMINOPHEN 325 MG TABLET. PO PRN (23:45)
[2020-11-20] MEDS: HEPARIN for SUB-Q USE 5,000 UNIT/ML VIAL. SQ SCH ×4 (00:09→20:53)
[2020-11-20 04:50] VITALS: BP 142/48
[2020-11-20] MEDS ORDERED: FURO40TA4 PO (07:15)
[2020-11-20] MEDS ORDERED: KETO5DRO89 EACHEYE (07:22)
[2020-11-20] MEDS ORDERED: OLOD4MIS2 IH (07:22)
[2020-11-20] MEDS ORDERED: KETO120S4 TP (07:22)
[2020-11-20] MEDS ORDERED: CETI10TA74 PO (07:22)
[2020-11-20] MEDS ORDERED: ACET325T9 PO (07:22)
[2020-11-20] MEDS ORDERED: ESCITALOPRAM OX10 MG PO (07:22)
[2020-11-20] MEDS ORDERED: POLY119P19 PO (07:22)
[2020-11-20] MEDS ORDERED: DIPH25CA58 PO (07:22)
[2020-11-20] MEDS ORDERED: HYDR-2867 PO (07:22)
[2020-11-20] MEDS ORDERED: MIRT-36 PO (07:22)
[2020-11-20 07:59] VITALS: BP 98/48
--- NOTE | 2020-11-20 09:02 | PDOC1 ---
History and Physical Date of Service: DOS: DATE: 11/20/20 TIME: 08:58 Chief Complaint: Chief Complain: Painful toe History of Present Illness: HPI: 89 year old male who arrives via EMS with a chief complaint of swelling, necrosis and erythema to the right foot that originates at the right third toe and radiates up the foot. Patient reportedly is on hospice but was sent in for evaluation for of this necrotic toe and states that he cannot take antibiotics. Patient describes mild to moderate pain is worse with palpation. There is been no reported fever. Patient is described as a discomfort. Of note, patient has been on hospice in the past year at [facility] with [facility]. Patient has not had dialysis for the past 2-1/2 years. Family has not been happy with the current hospice company and would like to consider changing. However, they do feel that [facility] has taken good care of him and would like to return back after this hospital stay. Past Medical/Surgical History: PMH/PSH: Past Medical History: Hypertension, Renal Failure PULM FIBROSIS,SUBCARINAL LYMPHADENOPATHY, Past Surgical History: STENTS,SINUS, peritoneal dialysis, R ant chest dialysis shunt Allergies: Allergies: Coded Allergies: Penicillins (Verified Allergy, Intermediate, 08/09/16) Sulfa (Sulfonamide Antibiotics) (Verified Allergy, Intermediate, 08/09/16) cephalexin (Verified Allergy, Intermediate, 10/27/18) unknown reation reported. TOLERATES CEFEPIME ciprofloxacin (Verified Allergy, Intermediate, 10/23/18) doxycycline (Verified Allergy, Intermediate, 10/23/18) erythromycin base (Verified Allergy, Intermediate, 10/23/18) fluticasone (Verified Allergy, Intermediate, 08/09/16) isosorbide (Verified Allergy, Intermediate, 10/23/18) nifedipine (Verified Allergy, Intermediate, 10/23/18) prednisone (Verified Allergy, Intermediate, 10/23/18) salmeterol (Verified Allergy, Intermediate, DUONEB [place], 07/07/17) spironolactone (Verified Allergy, Intermediate, 08/09/16) tamsulosin (Verified Allergy, Intermediate, 10/23/18) JACK Inhibitors (Verified Allergy, Unknown, 11/19/20) codeine (Verified Adverse Reaction, Intermediate, Nausea/Vomiting, 10/25/18) Family History: Family History: Multiple miscarriages and stillbirths in the family. Alcohol abuse in the family Social History: Social History: Smoking Status: Never Smoker Alcohol Use: None Drug Use: None Current Medications: Current Medications Current Medications Vancomycin HCl 250 ml @ 250 mls/hr 1X ONCE IV Last administered on 11/19/20at 20:08; Start 11/19/20 at 19:30; Stop 11/19/20 at 20:29; Status DC Ondansetron HCl (Zofran) 4 mg PRN Q8HRS PRN IV NAUSEA/VOMITING; Start 11/19/20 at 20:30; Stop 11/20/20 at 20:29 Fentanyl Citrate (Fentanyl 2ml Vial) 50 mcg PRN Q2HRS PRN IVP pain; Start 11/19/20 at 23:45 Acetaminophen (Tylenol) 650 mg PRN Q4HRS PRN PO MILD PAIN / TEMP > 100.3'F; Start 11/19/20 at 23:45 Heparin Sodium (Porcine) (Heparin Sodium) 5,000 unit Q8HRS SQ Last administered on 11/20/20at 06:44; Start 11/19/20 at 23:45 Active Scripts Active Albuterol Sulfate Neb Soln (Albuterol Sulfate) 1.25 Mg/3 Ml Vial.neb 1 Vial NEB Q4HRS Take a breathing treatment 4 times a day while being treated for pneumonia Reported Escitalopram Oxalate 10 Mg Tablet 1 Tab PO DAILY Ketotifen Fumarate 5 Ml Drops 1 Drop EACHEYE BID Ketoconazole 120 Ml Shampoo 1 Geraldo TP TWICE WEEKLY 30 Days with at least 3 days between each shampooing Hydralazine Hcl 10 Mg Tablet 1 Tab PO TID Glycolax (Polyethylene Glycol 3350) 119 Gm Powder 17 Gm PO UD Take according to instructions on printed sheet Zyrtec (Cetirizine Hcl) 10 Mg Tablet 0.5 Tab PO DAILY Tylenol (Acetaminophen) 325 Mg Tablet 2 Tab PO Q6HRS Remeron (Mirtazapine) 15 Mg Tablet 1 Tab PO QHS Striverdi Respimat (Olodaterol HCl) 4 Gm Mist.inhal 2.5 Gm IH DAILY Benadryl (Diphenhydramine Hcl) 25 Mg Capsule 1 Cap PO Q6HRS PRN 30 Days Furosemide 40 Mg Tablet 1 Tab PO DAILY Refresh Optive Eye Drops (Carboxymethylcellulos/Glycerin) 15 Ml Drops 1 Drop EACHEYE QIDPRN Metoprolol Tartrate 100 Mg Tablet 1 Tab PO DAILY Hydrocortisone 28.35 Gm Cream..g. 28.35 Gm TP FOR 5 DAYS NITROGLYCERIN SubLingual (Nitroglycerin) 0.4 Mg Tab.subl 0.4 Mg SL PRN Q5MIN PRN Gabapentin (Gabapentin) 300 Mg Capsule 300 Mg PO DAILY Aspir 81 (Aspirin) 81 Mg Tablet. 1 Tab PO DAILY ROS: Review of Systems Review of System REVIEW OF SYSTEMS: GENERAL: Denies weakness SKIN: No bruising, hair changes or rashes. EYES: No blurred, double or loss of vision. NOSE AND THROAT: No history of nosebleeds, hoarseness or sore throat. HEART: No history of palpitations, chest pain or shortness of breath on exertion. LUNGS: Denies cough, hemoptysis, wheezing or shortness of breath. GASTROINTESTINAL: Denies changes in appetite, nausea, vomiting, diarrhea or constipation. GENITOURINARY: No history of frequency, urgency, hesitancy or nocturia. NEUROLOGIC: Denies history of numbness, tingling, or tremor. PSYCHIATRIC: No history of panic, anxiety or depression. ENDOCRINE: No history of heat or cold intolerance, polyuria or polydipsia. EXTREMITIES: Denies joint pain, pain on walking or stiffness. Physical Exam: Vital Signs: Vital Signs Date Time Temp Pulse Resp B/P (MAP) Pulse Ox O2 Delivery O2 Flow Rate FiO2 11/20/20 04:50 98.2 58 16 142/48 (79) 96 Room Air 98.2 Physcial Exam: GEN: No apparent distress. Alert and oriented HEENT: Normal cephalic, atraumatic, external auditory canals are patent EYES: Extraocular muscles are intact, pupil are equally round and reactive to light and accommodation MUSCULOSKELETAL: Well developed , well nourished, good range of motion ENDOCRINE: No thyromegaly was palpated LYMPHATICS: No cervical chain or axillary nodes were noted HEMATOPOIETIC: No bruising NECK: Supple, no JVD, no thyromegaly was noted LUNGS: Clear to auscultation in all lung garcia without rhonchi or wheezing HEART: RRR, S!, S2 present. Peripheral pulses intact, no obvious murmurs noted ABDOMEN: Soft, nontender. Positive bowel sounds, no organomegaly, normal bowel sounds EXTREMITIES: Gangrene of the right third digit with surrounding erythema extending to the ankle. Nontender to palpation NEUROLOGIC: Normal speech and tone. A&O x 3, moves all extremities, no obvious focal deficits PSYCHIATRIC: Normal affect, normal mood. Stable SKIN: No ulcerations or rashes, good skin turgor, no jaundice VASCULAR: Good capillary refill, neurovascular bundle appears to be intact Labs: Labs: Laboratory Tests Test 11/19/20 19:49 11/19/20 21:32 White Blood Count 13.2 x10^3/uL (4.0-11.0) Red Blood Count 3.72 x10^6/uL (4.30-5.70) Hemoglobin 10.5 g/dL (13.0-17.5) Hematocrit 32.3 % (39.0-53.0) Mean Corpuscular Volume 87 fL (79-100) Mean Corpuscular Hemoglobin 28 pg (25-35) Mean Corpuscular Hemoglobin Concent 33 g/dL (31-37) Red Cell Distribution Width 14.3 % (11.5-14.5) Platelet Count 271 x10^3/uL (140-400) Neutrophils (%) (Auto) 72 % (31-73) Lymphocytes (%) (Auto) 13 % (24-48) Monocytes (%) (Auto) 10 % (0-9) Eosinophils (%) (Auto) 3 % (0-3) Basophils (%) (Auto) 1 % (0-3) Neutrophils # (Auto) 9.6 x10^3/uL (1.8-7.7) Lymphocytes # (Auto) 1.7 x10^3/uL (1.0-4.8) Monocytes # (Auto) 1.4 x10^3/uL (0.0-1.1) Eosinophils # (Auto) 0.4 x10^3/uL (0.0-0.7) Basophils # (Auto) 0.2 x10^3/uL (0.0-0.2) Prothrombin Time 13.3 SEC (11.7-14.0) Prothromb Time International Ratio 1.1 (0.8-1.1) Activated Partial Thromboplast Time 39 SEC (24-38) Sodium Level 135 mmol/L (136-145) Potassium Level 4.8 mmol/L (3.5-5.1) Chloride Level 99 mmol/L (98-107) Carbon Dioxide Level 24 mmol/L (21-32) Anion Gap 12 (6-14) Blood Urea Nitrogen 84 mg/dL (8-26) Creatinine 7.3 mg/dL (0.7-1.3) Estimated GFR (Cockcroft-Gault) 7.1 BUN/Creatinine Ratio 12 (6-20) Glucose Level 119 mg/dL (70-99) Lactic Acid Level 1.1 mmol/L (0.4-2.0) Calcium Level 9.3 mg/dL (8.5-10.1) Total Bilirubin 0.2 mg/dL (0.2-1.0) Aspartate Amino Transf (AST/SGOT) 14 U/L (15-37) Alanine Aminotransferase (ALT/SGPT) 18 U/L (16-63) Alkaline Phosphatase 115 U/L (46-116) C-Reactive Protein, Quantitative 115.5 mg/L (0-3.3) Total Protein 8.5 g/dL (6.4-8.2) Albumin 3.2 g/dL (3.4-5.0) Albumin/Globulin Ratio 0.6 (1.0-1.7) SARS-CoV-2 Antigen (Rapid) Negative (NEGATIVE) Laboratory Tests Test 11/19/20 19:49 11/19/20 21:32 White Blood Count 13.2 x10^3/uL (4.0-11.0) Red Blood Count 3.72 x10^6/uL (4.30-5.70) Hemoglobin 10.5 g/dL (13.0-17.5) Hematocrit 32.3 % (39.0-53.0) Mean Corpuscular Volume 87 fL (79-100) Mean Corpuscular Hemoglobin 28 pg (25-35) Mean Corpuscular Hemoglobin Concent 33 g/dL (31-37) Red Cell Distribution Width 14.3 % (11.5-14.5) Platelet Count 271 x10^3/uL (140-400) Neutrophils (%) (Auto) 72 % (31-73) Lymphocytes (%) (Auto) 13 % (24-48) Monocytes (%) (Auto) 10 % (0-9) Eosinophils (%) (Auto) 3 % (0-3) Basophils (%) (Auto) 1 % (0-3) Neutrophils # (Auto) 9.6 x10^3/uL (1.8-7.7) Lymphocytes # (Auto) 1.7 x10^3/uL (1.0-4.8) Monocytes # (Auto) 1.4 x10^3/uL (0.0-1.1) Eosinophils # (Auto) 0.4 x10^3/uL (0.0-0.7) Basophils # (Auto) 0.2 x10^3/uL (0.0-0.2) Prothrombin Time 13.3 SEC (11.7-14.0) Prothromb Time International Ratio 1.1 (0.8-1.1) Activated Partial Thromboplast Time 39 SEC (24-38) Sodium Level 135 mmol/L (136-145) Potassium Level 4.8 mmol/L (3.5-5.1) Chloride Level 99 mmol/L (98-107) Carbon Dioxide Level 24 mmol/L (21-32) Anion Gap 12 (6-14) Blood Urea Nitrogen 84 mg/dL (8-26) Creatinine 7.3 mg/dL (0.7-1.3) Estimated GFR (Cockcroft-Gault) 7.1 BUN/Creatinine Ratio 12 (6-20) Glucose Level 119 mg/dL (70-99) Lactic Acid Level 1.1 mmol/L (0.4-2.0) Calcium Level 9.3 mg/dL (8.5-10.1) Total Bilirubin 0.2 mg/dL (0.2-1.0) Aspartate Amino Transf (AST/SGOT) 14 U/L (15-37) Alanine Aminotransferase (ALT/SGPT) 18 U/L (16-63) Alkaline Phosphatase 115 U/L (46-116) C-Reactive Protein, Quantitative 115.5 mg/L (0-3.3) Total Protein 8.5 g/dL (6.4-8.2) Albumin 3.2 g/dL (3.4-5.0) Albumin/Globulin Ratio 0.6 (1.0-1.7) SARS-CoV-2 Antigen (Rapid) Negative (NEGATIVE) Images: Images FOOT XR impression: The alignment of the tarsal bones, tarsometatarsal joints, metatarsophalangeal joints, interphalangeal joints grossly appears unremarkable. No evidence of cortical disruption identified to suggest osteomyelitis on this radiograph. If clinical suspicion for osteomyelitis persists, recommend follow-up nonemergent MRI. CXR impression: Low lung volumes and technique accentuates heart size and pulmonary vascularity. Moderate prominent appearing bilateral interstitial lung markings likely chronic interstitial changes with patchy airspace opacities identified in the bilateral lungs likely atelectasis or infiltrates. Assessment/Plan Assessment/Plan Acute right third toe gangrene with surrounding cellulitis Hyponatremia ESRD, currently not on hemodialysis and recent and has been on hospice in the past year Reactive leukocytosis Anemia due to ESRD Admit to medicine for further management Continue IV vancomycin and cefepime Pending blood cultures Pending vascular surgery evaluation Nephrology consult Heparin for DVT prophylaxis Protonix GI prophylaxis ADA diet Full code Discussed with RN and SW Disposition pending evaluation from vascular surgery Surrogate decision maker is the son and [id number] Advance care planning: A total time of > 17 minutes was spent from 10:00 to 1030 face to face in discussion with the patient and family regarding their goals of care, and management of gangrene of her toe. As of right now, patient is agreeable to his surgery if needed and also antibiotics. He still does not want dialysis at this time. Justifications for Admission Other Justification MELISSA REESE MD Nov 20, 2020 09:02
[2020-11-20 11:59] VITALS: BP 156/56
[2020-11-20] MEDS ORDERED: DOCUSATE SODIUM 100 MG CAPSULE. PO PRN (12:15)
[2020-11-20] MEDS ORDERED: ONDANSETRON PF 4 MG/2 ML VIAL. IVP PRN (12:15)
[2020-11-20] MEDS ORDERED: SENNOSIDES 8.6 MG TABLET PO PRN (12:15)
[2020-11-20] MEDS ORDERED: DEXTROSE 50% 25 GM / 50ML DISP.SYRIN. IV PRN (12:15)
--- NOTE | 2020-11-20 12:22 | PDOC ---
Provider Note Date of Service: DATE: 11/20/20 TIME: 12:19 Provider Note Vascular consult dictated. Imp: 1. dry gangrene right 3rd toe 2. chronic renal failure. Pt refuses dialysis. Currently hospice care 3. tibial artery occlusive disease Rec: 1. conservative therapy - IV antibx, observation. May need partial toe amp. depending on overall prognosis Justifications for Admission Other Justification Gangrene of the toe MARÍA CROCKER II, MD Nov 20, 2020 12:21
[2020-11-20] MEDS: CEFEPIME HCL IV Push 2 GM VIAL. IVP SCH (12:52)
[2020-11-20] MEDS: VANCOMYCIN PER PHARMACY MC PRN (12:59)
--- NOTE | 2020-11-20 12:59 | CONS ---
DATE OF CONSULTATION: 11/20/2020 VASCULAR SURGERY CONSULTATION HISTORY: This is an 89-year-old gentleman who was admitted for dry gangrene of the right third toe with some streaking of the foot. Pertinent history includes chronic renal insufficiency. In fact, he has refused dialysis and is on hospice care at this point in time. His creatinine is well over 7. He is admitted from a nursing facility. PAST MEDICAL HISTORY: Significant for hypertension, chronic renal insufficiency, pulmonary fibrosis. PAST SURGICAL HISTORY: Includes coronary stents, peritoneal dialysis catheter. ALLERGIES: MULTIPLE AND ALL REVIEWED AND INCLUDE PENICILLIN, CEPHALEXIN, CIPROFLOXACIN, NIFEDIPINE, PREDNISONE, CODEINE, JACK INHIBITORS. FAMILY HISTORY: Significant for alcohol abuse. SOCIAL HISTORY: The patient is a nonsmoker. He resides currently in a skilled nursing and as mentioned is on hospice care at this point in time. MEDICATIONS: Include IV vancomycin. REVIEW OF SYSTEMS: 12-point review of systems is unremarkable. He denies chest pain, history of claudication or pain in his feet. PHYSICAL EXAMINATION: GENERAL: The patient is alert and awake. HEENT: Unremarkable. He has 2+ carotid pulses without bruit. CHEST: Clear. ABDOMEN: Soft, nontender, no palpable mass. VASCULAR: Easily palpable femoral and popliteal pulses. Absent pedal pulses; however, there is monophasic arterial Doppler flow over the posterior tibial and dorsal pedal arteries. There is dry gangrene of the right third toe with one red streak going up the dorsum. There is no evidence of abscess. X-ray reveals degenerative changes, but no evidence of osteomyelitis or gas. LABORATORY DATA: White blood cell count is 13, creatinine is 7.3. IMPRESSION: 1. Dry gangrene of the right third toe. 2. Chronic renal insufficiency in which the patient has refused dialysis, currently on hospice care. 3. Arterial insufficiency of the right lower extremity. Suspect tibial occlusive disease as the patient has a bounding popliteal pulse, but does not feel aneurysmal. RECOMMENDATIONS: Conservative therapy in light of his decision to not undergo hemodialysis. The foot currently is stable with dry gangrene. I recommend IV antibiotics and observation for now. Should the patient desires surgery, then a toe amputation would be advised. We will also order arterial duplex imaging of the tibial arteries. Thank you for allowing me to evaluate him. MARÍA CROCKER MD DR: MAURICE/zully JOB#: [id number] / [id number]
--- NOTE | 2020-11-20 13:02 | NUR ---
Pharmacy Vancomycin Dosing Note S:Consulted to monitor and dose vancomycin started 11/19/20. O:SANG EMERSON is a 89 year old M with Cellulitis. Height: 5 feet, 10 inches Weight: 63.7 kg Dolliver Body Weight: 73.00 Adjusted Body Weight: 69.28 Dosing Weight: 63 kg Other Antibiotics: cefepime LABS: Last BUN: 84 Last Creatinine: 7.3 Creatinine Clearance: 6 mL/min Last WBC: 13.2 Tmax (past 24 hours): 99.7 Microbiology: 11/19: blood cx pending I/O: 250 / -- Last dose given 11/19/20 at 2007 Dosing Weight: Actual Target Trough: 10-20 A: Based on: patient's age, weight and renal function. P: 1. Vancomycin 1000 mg IV given in the ED. No further dosing until random level returns on 11/21 2. Follow up Random level on 11/21/20 at 1999 3. Pharmacy will continue to monitor, follow and adjust therapy as needed. LORENA CHU [facility], 11/20/20 [id number]
--- NOTE | 2020-11-20 15:23 | PDOC2 ---
CONSULT Date of Consult Date of Consult DATE: 11/20/20 TIME: 15:13 Reason for Consult Reason for Consult: RENAL FAILURE Referring Physician Referring Physician: ABILIO Identification/Chief Complaint Chief Complaint TOE PAIN Source Source: Chart review, Patient History of Present Illness Reason for Visit: THIS IS AN 89 YR OLD WITH SWELLING AND PAIN IN HIS RIGHT FOOT. HE HAS RIGHT 3RD TOE GANGRENE. HAS HAD PROGRESSIVE KIDNEY FAILURE AND WAS ON PD INITIALLY STARTED IN LATE 2018 AND THEN DISCONTINUED DUE TO PERITONITIS. HE THEN WENT ON HD BUT THEN STOPPED HD ABOUT A YEAR AGO AND WENT ON HOSPICE. HAS BEEN DOING OK. STATES APPETITE HAS BEEN POOR FOR AT LEAST SIX MONTHS. NO N/V, SWELLING, SOB, PRURITUS ETC. CR OF ABOUT 7.3. WAS ABOUT 6.2 EARLIER THIS YEAR. NO SIGNIFICANT ANEMIA REQUIRING ALMA'S OR MET ACIDOSIS NOTED. ESRD FELT TO BE DUE TO HTN Past Medical History Cardiovascular: HTN GI: Constipation Heme/Onc: Anemia NOS Renal/: Chronic renal failure Endocrine: Hyperparathyroidism Past Surgical History Past Surgical History: Other Family History Family History: No Significant, Hypertension Social History ALCOHOL: rare Drugs: None Current Problem List Problem List Problems Medical Problems: (1) Chronic renal failure Status: Acute (2) Gangrene of toe of right foot Status: Acute Current Medications Current Medications Current Medications Vancomycin HCl 250 ml @ 250 mls/hr 1X ONCE IV Last administered on 11/19/20at 20:08; Start 11/19/20 at 19:30; Stop 11/19/20 at 20:29; Status DC Ondansetron HCl (Zofran) 4 mg PRN Q8HRS PRN IV NAUSEA/VOMITING; Start 11/19/20 at 20:30; Stop 11/20/20 at 20:29 Fentanyl Citrate (Fentanyl 2ml Vial) 50 mcg PRN Q2HRS PRN IVP pain; Start 11/19/20 at 23:45 Acetaminophen (Tylenol) 650 mg PRN Q4HRS PRN PO MILD PAIN / TEMP > 100.3'F; Start 11/19/20 at 23:45 Heparin Sodium (Porcine) (Heparin Sodium) 5,000 unit Q8HRS SQ Last administered on 11/20/20at 06:44; Start 11/19/20 at 23:45 Vancomycin HCl (Vanco Per Pharmacy) 1 each PRN DAILY PRN MC SEE COMMENTS Last administered on 11/20/20at 12:59; Start 11/20/20 at 12:15 Cefepime HCl (Maxipime) 2 gm Q24H IVP Last administered on 11/20/20at 12:52; Start 11/20/20 at 14:00 Sennosides (Senna) 17.2 mg PRN BID PRN PO CONSTIPATION; Start 11/20/20 at 12:15 Docusate Sodium (Colace) 100 mg PRN DAILY PRN PO HARD STOOLS; Start 11/20/20 at 12:15 Ondansetron HCl (Zofran) 4 mg PRN Q6HRS PRN IVP NAUSEA/VOMITING; Start 11/20/20 at 12:15 Dextrose (Dextrose 50%-Water Syringe) 12.5 gm PRN Q15MIN PRN IV SEE COMMENTS; Start 11/20/20 at 12:15 Heparin Sodium (Porcine) (Heparin Sodium) 5,000 unit Q12HR SQ ; Start 11/20/20 at 21:00; Stop 11/20/20 at 12:18; Status DC Vancomycin HCl (Vancomycin Random Level) 1 each 1X ONCE MC ; Start 11/21/20 at 20:00; Stop 11/21/20 at 20:01 Active Scripts Active Albuterol Sulfate Neb Soln (Albuterol Sulfate) 1.25 Mg/3 Ml Vial.neb 1 Vial NEB Q4HRS Take a breathing treatment 4 times a day while being treated for pneumonia Reported Escitalopram Oxalate 10 Mg Tablet 1 Tab PO DAILY Ketotifen Fumarate 5 Ml Drops 1 Drop EACHEYE BID Ketoconazole 120 Ml Shampoo 1 Geraldo TP TWICE WEEKLY 30 Days with at least 3 days between each shampooing Hydralazine Hcl 10 Mg Tablet 1 Tab PO TID Glycolax (Polyethylene Glycol 3350) 119 Gm Powder 17 Gm PO UD Take according to instructions on printed sheet Zyrtec (Cetirizine Hcl) 10 Mg Tablet 0.5 Tab PO DAILY Tylenol (Acetaminophen) 325 Mg Tablet 2 Tab PO Q6HRS Remeron (Mirtazapine) 15 Mg Tablet 1 Tab PO QHS Striverdi Respimat (Olodaterol HCl) 4 Gm Mist.inhal 2.5 Gm IH DAILY Benadryl (Diphenhydramine Hcl) 25 Mg Capsule 1 Cap PO Q6HRS PRN 30 Days Furosemide 40 Mg Tablet 1 Tab PO DAILY Refresh Optive Eye Drops (Carboxymethylcellulos/Glycerin) 15 Ml Drops 1 Drop EACHEYE QIDPRN Metoprolol Tartrate 100 Mg Tablet 1 Tab PO DAILY Hydrocortisone 28.35 Gm Cream..g. 28.35 Gm TP FOR 5 DAYS NITROGLYCERIN SubLingual (Nitroglycerin) 0.4 Mg Tab.subl 0.4 Mg SL PRN Q5MIN PRN Gabapentin (Gabapentin) 300 Mg Capsule 300 Mg PO DAILY Aspir 81 (Aspirin) 81 Mg Tablet.dr 1 Tab PO DAILY Allergies Allergies: Coded Allergies: Penicillins (Verified Allergy, Intermediate, 08/09/16) Sulfa (Sulfonamide Antibiotics) (Verified Allergy, Intermediate, 08/09/16) cephalexin (Verified Allergy, Intermediate, 10/27/18) unknown reation reported. TOLERATES CEFEPIME ciprofloxacin (Verified Allergy, Intermediate, 10/23/18) doxycycline (Verified Allergy, Intermediate, 10/23/18) erythromycin base (Verified Allergy, Intermediate, 10/23/18) fluticasone (Verified Allergy, Intermediate, 08/09/16) isosorbide (Verified Allergy, Intermediate, 10/23/18) nifedipine (Verified Allergy, Intermediate, 10/23/18) prednisone (Verified Allergy, Intermediate, 10/23/18) salmeterol (Verified Allergy, Intermediate, DUONEB [place], 07/07/17) spironolactone (Verified Allergy, Intermediate, 08/09/16) tamsulosin (Verified Allergy, Intermediate, 10/23/18) JACK Inhibitors (Verified Allergy, Unknown, 11/19/20) codeine (Verified Adverse Reaction, Intermediate, Nausea/Vomiting, 10/25/18) ROS General: YES: Fatigue, Malaise, Appetite PSYCHOLOGICAL ROS: YES: Anxiety Eyes: Yes Decreased vision HEENT: YES: Heacaches Gastrointestinal: Yes Constipation, Yes Other (POOR APPETITE) Genitourinary: YES Frequency Musculoskeletal: Yes Joint Pain, Yes Joint Stiffness, Yes Muscular Weakness Neurological: Yes Weakness Skin: Yes Dry Skin, Yes Skin Lesion Changes Physical Exam General: Alert, Oriented X3, Cooperative, No acute distress HEENT: Atraumatic, PERRLA Lungs: Clear to auscultation Heart: Regular rate, Normal S1, Normal S2 Abdomen: Normal bowel sounds, No tenderness Extremities: No cyanosis Skin: No breakdown Neuro: Normal speech, Sensation intact Psych/Mental Status: Mental status NL, Mood NL MUSCULOSKELETAL: Other (RIGHT 3RD TOE GANGRENE) Vitals VITALS Vital Signs Date Time Temp Pulse Resp B/P (MAP) Pulse Ox O2 Delivery O2 Flow Rate FiO2 11/20/20 11:59 97.5 51 18 156/56 (89) 95 Room Air 97.5 Labs Labs Laboratory Tests Test 11/19/20 19:49 11/19/20 21:32 White Blood Count 13.2 x10^3/uL (4.0-11.0) Red Blood Count 3.72 x10^6/uL (4.30-5.70) Hemoglobin 10.5 g/dL (13.0-17.5) Hematocrit 32.3 % (39.0-53.0) Mean Corpuscular Volume 87 fL (79-100) Mean Corpuscular Hemoglobin 28 pg (25-35) Mean Corpuscular Hemoglobin Concent 33 g/dL (31-37) Red Cell Distribution Width 14.3 % (11.5-14.5) Platelet Count 271 x10^3/uL (140-400) Neutrophils (%) (Auto) 72 % (31-73) Lymphocytes (%) (Auto) 13 % (24-48) Monocytes (%) (Auto) 10 % (0-9) Eosinophils (%) (Auto) 3 % (0-3) Basophils (%) (Auto) 1 % (0-3) Neutrophils # (Auto) 9.6 x10^3/uL (1.8-7.7) Lymphocytes # (Auto) 1.7 x10^3/uL (1.0-4.8) Monocytes # (Auto) 1.4 x10^3/uL (0.0-1.1) Eosinophils # (Auto) 0.4 x10^3/uL (0.0-0.7) Basophils # (Auto) 0.2 x10^3/uL (0.0-0.2) Prothrombin Time 13.3 SEC (11.7-14.0) Prothromb Time International Ratio 1.1 (0.8-1.1) Activated Partial Thromboplast Time 39 SEC (24-38) Sodium Level 135 mmol/L (136-145) Potassium Level 4.8 mmol/L (3.5-5.1) Chloride Level 99 mmol/L (98-107) Carbon Dioxide Level 24 mmol/L (21-32) Anion Gap 12 (6-14) Blood Urea Nitrogen 84 mg/dL (8-26) Creatinine 7.3 mg/dL (0.7-1.3) Estimated GFR (Cockcroft-Gault) 7.1 BUN/Creatinine Ratio 12 (6-20) Glucose Level 119 mg/dL (70-99) Lactic Acid Level 1.1 mmol/L (0.4-2.0) Calcium Level 9.3 mg/dL (8.5-10.1) Total Bilirubin 0.2 mg/dL (0.2-1.0) Aspartate Amino Transf (AST/SGOT) 14 U/L (15-37) Alanine Aminotransferase (ALT/SGPT) 18 U/L (16-63) Alkaline Phosphatase 115 U/L (46-116) C-Reactive Protein, Quantitative 115.5 mg/L (0-3.3) Total Protein 8.5 g/dL (6.4-8.2) Albumin 3.2 g/dL (3.4-5.0) Albumin/Globulin Ratio 0.6 (1.0-1.7) SARS-CoV-2 Antigen (Rapid) Negative (NEGATIVE) Laboratory Tests Test 11/19/20 19:49 11/19/20 21:32 White Blood Count 13.2 x10^3/uL (4.0-11.0) Red Blood Count 3.72 x10^6/uL (4.30-5.70) Hemoglobin 10.5 g/dL (13.0-17.5) Hematocrit 32.3 % (39.0-53.0) Mean Corpuscular Volume 87 fL (79-100) Mean Corpuscular Hemoglobin 28 pg (25-35) Mean Corpuscular Hemoglobin Concent 33 g/dL (31-37) Red Cell Distribution Width 14.3 % (11.5-14.5) Platelet Count 271 x10^3/uL (140-400) Neutrophils (%) (Auto) 72 % (31-73) Lymphocytes (%) (Auto) 13 % (24-48) Monocytes (%) (Auto) 10 % (0-9) Eosinophils (%) (Auto) 3 % (0-3) Basophils (%) (Auto) 1 % (0-3) Neutrophils # (Auto) 9.6 x10^3/uL (1.8-7.7) Lymphocytes # (Auto) 1.7 x10^3/uL (1.0-4.8) Monocytes # (Auto) 1.4 x10^3/uL (0.0-1.1) Eosinophils # (Auto) 0.4 x10^3/uL (0.0-0.7) Basophils # (Auto) 0.2 x10^3/uL (0.0-0.2) Prothrombin Time 13.3 SEC (11.7-14.0) Prothromb Time International Ratio 1.1 (0.8-1.1) Activated Partial Thromboplast Time 39 SEC (24-38) Sodium Level 135 mmol/L (136-145) Potassium Level 4.8 mmol/L (3.5-5.1) Chloride Level 99 mmol/L (98-107) Carbon Dioxide Level 24 mmol/L (21-32) Anion Gap 12 (6-14) Blood Urea Nitrogen 84 mg/dL (8-26) Creatinine 7.3 mg/dL (0.7-1.3) Estimated GFR (Cockcroft-Gault) 7.1 BUN/Creatinine Ratio 12 (6-20) Glucose Level 119 mg/dL (70-99) Lactic Acid Level 1.1 mmol/L (0.4-2.0) Calcium Level 9.3 mg/dL (8.5-10.1) Total Bilirubin 0.2 mg/dL (0.2-1.0) Aspartate Amino Transf (AST/SGOT) 14 U/L (15-37) Alanine Aminotransferase (ALT/SGPT) 18 U/L (16-63) Alkaline Phosphatase 115 U/L (46-116) C-Reactive Protein, Quantitative 115.5 mg/L (0-3.3) Total Protein 8.5 g/dL (6.4-8.2) Albumin 3.2 g/dL (3.4-5.0) Albumin/Globulin Ratio 0.6 (1.0-1.7) SARS-CoV-2 Antigen (Rapid) Negative (NEGATIVE) Assessment/Plan Assessment/Plan IMP UREMIA ESRD ANEMIA HTN LEUCOCYTOSIS R 3RD TOE GANGRENE PLAN ANTIBIOTICS VASCULAR SURGERY EVALUATION PT RECONSIDERING DIALYSIS AGAIN BUT NO SURE WAS ON PD WHICH STARTED IN LATE 2017 THEN SWITCHED TO HD DUE TO PERITONITIS HE DID HD FOR A WHILE BUT QUIT ABOUT A YEAR AGO AND WENT TO HOSPICE [facility] DAVIS MD Nov 20, 2020 15:23
[2020-11-20 15:59] VITALS: BP 172/58
[2020-11-20 19:00] VITALS: BP 153/54
[2020-11-20] MEDS ORDERED: HEPARIN for SUB-Q USE 5,000 UNIT/ML VIAL. SQ SCH (21:00)
[2020-11-20 23:00] VITALS: BP 145/54
[2020-11-21] VITALS (7 sets, daily range): BP systolic 138–208; BP diastolic 46–85
--- NOTE | 2020-11-21 02:35 | RAD ---
US RIGHT LOWER EXTREMITY ARTERIAL DUPLEX EVAL 11/20/2020 5:42 PM INDICATION: Necrosis of the right third toe COMPARISON: None available TECHNIQUE: Sonographic evaluation of the right lower extremity arterial system was performed as an g rayscale, color Doppler and spectral waveform analysis. FINDINGS: Noncalcified atheromatous plaque is identified involving the proximal right superficial femoral arter y. Calcified and noncalcified atheromatous plaque identified throughout the right lower extremity. Mo nophasic waveforms are identified within the posterior tibial artery, peroneal artery and dorsalis pe dis artery. Biphasic waveforms are identified within the anterior tibial artery and deep femoral saw ry. Triphasic waveforms are identified within the right common femoral artery, superficial femoral ar sade and popliteal artery. Common femoral artery: 131 cm/s Profunda artery: 69 cm/s Superficial femoral artery, proximal: 123 cm/s Superficial femoral artery, mid: 192 cm/s Superficial femoral artery, distal: 170 cm/s Popliteal artery: 94 cm/s Posterior tibial artery: 40-94 cm/s Anterior tibial artery: 81 cm/s Peroneal artery: 134 cm/s Dorsalis pedis artery: 15 cm/s IMPRESSION: Mild right lower extremity peripheral arterial disease without hemodynamically significant stenosis. Diminished velocities are identified within the dorsalis pedis artery. Electronically signed by: Gayle Beverly MD (11/21/2020 2:32 AM) [facility]
[2020-11-21] MEDS: HEPARIN for SUB-Q USE 5,000 UNIT/ML VIAL. SQ SCH ×3 (05:23→21:31)
[2020-11-21 10:10] LABS: BASO # 0.1 x10^3/uL (0.0-0.2); BASO % 1 % (0-3); EOS # 0.3 x10^3/uL (0.0-0.7); EOS % 3 % (0-3); HEMATOCRIT 29.3 % (39.0-53.0); HEMOGLOBIN 9.9 g/dL (13.0-17.5); LYMPH # 1.3 x10^3/uL (1.0-4.8); LYMPH % 15 % (24-48); MEAN CORPUSCULAR HEMOGLOBIN 29 pg (25-35); MEAN CORPUSCULAR HGB CONC 34 g/dL (31-37); MEAN CORPUSCULAR VOLUME 86 fL (79-100); MONO # 0.7 x10^3/uL (0.0-1.1); MONO % 8 % (0-9); NEUT # 6.4 x10^3/uL (1.8-7.7); NEUT % 73 % (31-73); PLATELET COUNT 245 x10^3/uL (140-400); RED BLOOD COUNT 3.41 x10^6/uL (4.30-5.70); RED CELL DISTRIBUTION WIDTH 14.1 % (11.5-14.5); WHITE BLOOD COUNT 8.7 x10^3/uL (4.0-11.0)
[2020-11-21 10:34] LABS: CREATININE 7.8 mg/dL (0.7-1.3); GFR 6.6; MAGNESIUM 2.7 mg/dL (1.8-2.4); PHOSPHORUS 6.2 mg/dL (2.6-4.7); POTASSIUM 4.1 mmol/L (3.5-5.1)
--- NOTE | 2020-11-21 11:37 | PDOC ---
Provider Note Date of Service: DATE: 11/21/20 TIME: 11:27 Provider Note Provider Note S: Patient seen in consultation yesterday by Dr. Weldon for right third toe gangrene. He has an end-stage renal disease who previously was on peritoneal dialysis and got peritonitis and then was on hemodialysis however has refused dialysis over the past year. According to the patient usually this is followed at the [facility]. He is here for his right third toe gangrene, resides at a longterm. He denies any fevers, chills. He does have pain to location of wound, radiates to forefoot, he is very concerned about his third toe. He has been on IV antibiotics since admission. He had arterial duplex yesterday that shows mild peripheral arterial disease with no focal areas of flow-limiting stenosis. O: Vital signs stable, afebrile Labs are reviewed, creatinine 7.8. On admission he had leukocytosis, however this has resolved. Bilateral feet are warm, right foot has a palpable PT and diminished DP. Excellent capillary refill. Right third toe tip is dry gangrene with significant erythema to the rest of the toe extending proximally to the forefoot. No significant drainage, exam is limited due to patient's tenderness. A/P: End-stage renal disease, not on dialysis Right third toe gangrene I discussed further options today, including conservative management as recommended by Dr. Weldon due to the patient's refusal of wanting dialysis and choice for hospice in the past. The patient is adamant that he would like to have toe amputation. He seems to have adequate circulation for healing, but this is something we can follow as needed as he would not be a candidate for angiography at this point. I discussed risks and benefits of surgery, including details of the procedure, possibly need for an open amputation, wound VAC, expected post op course. Patient exhibited understanding and agreed to proceed with amputation. We will work on scheduling this as soon as we can. Addendum 11:50 - Pt scheduled for Friday 11/23 at 1300 for right 3rd toe amp with Dr. Quinn. Justicifation of Admission Dx: Justifications for Admission: Justification of Admission Dx: Yes Comments: surgery plans KALI PADILLA Nov 21, 2020 11:37
--- NOTE | 2020-11-21 11:58 | PDOC ---
[employer] PROGRESS NOTE Date of Service DOS: DATE: 11/21/20 TIME: 11:57 Chief Complaint Chief Complaint Acute right third toe gangrene with surrounding cellulitis Hyponatremia ESRD, currently not on hemodialysis and recent and has been on hospice in the past year Reactive leukocytosis Anemia due to ESRD Admit to medicine for further management Continue IV vancomycin and cefepime Pending blood cultures Pending vascular surgery evaluation Nephrology consult Heparin for DVT prophylaxis Protonix GI prophylaxis ADA diet Full code Discussed with RN and SW Disposition plan for toe amputation on 11/23/2020 Surrogate decision maker is the son and [id number] History of Present Illness History of Present Illness 11/21/2020 No acute events overnight. Patient is afebrile. Denies any pain to the right third toe gangrene. Evaluated by vascular surgery and the nurse practitioner. Patient is agreeable for toe amputation. Patient's chart, labs, images were reviewed and discussed with RN 89 year old male who arrives via EMS with a chief complaint of swelling, necrosis and erythema to the right foot that originates at the right third toe and radiates up the foot. Patient reportedly is on hospice but was sent in for evaluation for of this necrotic toe and states that he cannot take antibiotics. Patient describes mild to moderate pain is worse with palpation. There is been no reported fever. Patient is described as a discomfort. Of note, patient has been on hospice in the past year at [facility] with [facility] hosp[facility]. Patient has not had dialysis for the past 2-1/2 years. Family has not been happy with the current hospice company and would like to consider changing. However, they do feel that [facility] has taken good care of him and would like to return back after this hospital stay. Vitals/I&O Vitals/I&O: Vital Signs Date Time Temp Pulse Resp B/P (MAP) Pulse Ox O2 Delivery O2 Flow Rate FiO2 11/21/20 08:00 Room Air 11/21/20 07:00 98.6 86 154/85 (108) 96 98.6 11/21/20 03:00 18 I & O 11/20/20 11/20/20 11/21/20 15:00 23:00 07:00 Intake Total 340 ml 300 ml 50 ml Output Total 350 ml 550 ml Balance 340 ml -50 ml -500 ml Physical Exam General: Alert, Oriented X3, Cooperative, No acute distress Heart: Regular rate, Normal S1, Normal S2 Lungs: Clear Abdomen: Normal bowel sounds, No tenderness Extremities: No cyanosis Skin: No breakdown Labs Labs: Laboratory Tests Test 11/21/20 09:45 White Blood Count 8.7 x10^3/uL (4.0-11.0) Red Blood Count 3.41 x10^6/uL (4.30-5.70) Hemoglobin 9.9 g/dL (13.0-17.5) Hematocrit 29.3 % (39.0-53.0) Mean Corpuscular Volume 86 fL (79-100) Mean Corpuscular Hemoglobin 29 pg (25-35) Mean Corpuscular Hemoglobin Concent 34 g/dL (31-37) Red Cell Distribution Width 14.1 % (11.5-14.5) Platelet Count 245 x10^3/uL (140-400) Neutrophils (%) (Auto) 73 % (31-73) Lymphocytes (%) (Auto) 15 % (24-48) Monocytes (%) (Auto) 8 % (0-9) Eosinophils (%) (Auto) 3 % (0-3) Basophils (%) (Auto) 1 % (0-3) Neutrophils # (Auto) 6.4 x10^3/uL (1.8-7.7) Lymphocytes # (Auto) 1.3 x10^3/uL (1.0-4.8) Monocytes # (Auto) 0.7 x10^3/uL (0.0-1.1) Eosinophils # (Auto) 0.3 x10^3/uL (0.0-0.7) Basophils # (Auto) 0.1 x10^3/uL (0.0-0.2) Sodium Level 138 mmol/L (136-145) Potassium Level 4.1 mmol/L (3.5-5.1) Chloride Level 102 mmol/L (98-107) Carbon Dioxide Level 22 mmol/L (21-32) Anion Gap 14 (6-14) Blood Urea Nitrogen 87 mg/dL (8-26) Creatinine 7.8 mg/dL (0.7-1.3) Estimated GFR (Cockcroft-Gault) 6.6 Glucose Level 96 mg/dL (70-99) Calcium Level 9.0 mg/dL (8.5-10.1) Phosphorus Level 6.2 mg/dL (2.6-4.7) Magnesium Level 2.7 mg/dL (1.8-2.4) Assessment and Plan Assessmemt and Plan Problems Medical Problems: (1) Chronic renal failure Status: Acute (2) Gangrene of toe of right foot Status: Acute Comment Review of Relevant I have reviewed the following items juvenal (where applicable) has been applied. Medications: Current Medications Medications (Trade) Dose Ordered Sig/Andrés Route PRN Reason Start Time Stop Time Status Last Admin Dose Admin Vancomycin HCl (Vanco Per Pharmacy) 1 each PRN DAILY PRN MC SEE COMMENTS 11/20/20 12:15 11/20/20 12:59 Cefepime HCl (Maxipime) 2 gm Q24H IVP 11/20/20 14:00 11/20/20 12:52 Justifications for Admission Other Justification Gangrene of the toe MELISSA REESE MD Nov 21, 2020 11:58
--- NOTE | 2020-11-21 11:58 | PDOC ---
DATE OF SERVICE DATE: 11/21/20 TIME: 11:55 SUBJECTIVE ROS No complaints, denies SOB, No N/V. States he might be willing to go back on dialysis, will decide after dw his family and after his toe amputation OBJECTIVE Vital Signs Vital Signs Date Time Temp Pulse Resp B/P (MAP) Pulse Ox O2 Delivery O2 Flow Rate FiO2 11/21/20 08:00 Room Air 11/21/20 07:00 98.6 86 154/85 (108) 96 98.6 11/21/20 03:00 18 I & 0 Intake and Output 11/21/20 06:59 Intake Total 690 ml Output Total 900 ml Balance -210 ml Intake Oral 690 ml Output Urine Total 900 ml PHYSICAL EXAM Physical Exam GENERAL: NAD HEENT: OM moist LUNGS : CTA, non labored CV S1S2 ABDOMEN: Soft, nontender Ext dry gangrene of the right third toe, no LE edema NEURO- AxOx3 , no gross neuro deficit, No Asterexis No Tom DIAGNOSIS/ASSESSMENT Assessment & Plan CKD stage 5 - he has Dx of ESRD , has been on PD late 2017 , switched to HD 2/2 peritonitis . 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 Anemia HTN- anyihypertensives COMMENT/RELEVANT DATA Meds Current Medications Medications (Trade) Dose Ordered Sig/Andrés Start Time Stop Time Status Last Admin Dose Admin Acetaminophen (Tylenol) 650 mg PRN Q4HRS PRN 11/19/20 23:45 Cefepime HCl (Maxipime) 2 gm Q24H 11/20/20 14:00 11/20/20 12:52 2 GM Dextrose (Dextrose 50%-Water Syringe) 12.5 gm PRN Q15MIN PRN 11/20/20 12:15 Docusate Sodium (Colace) 100 mg PRN DAILY PRN 11/20/20 12:15 Fentanyl Citrate (Fentanyl 2ml Vial) 50 mcg PRN Q2HRS PRN 11/19/20 23:45 Heparin Sodium (Porcine) (Heparin Sodium) 5,000 unit Q12HR 11/20/20 21:00 11/20/20 12:18 DC Ondansetron HCl (Zofran) 4 mg PRN Q6HRS PRN 11/20/20 12:15 Sennosides (Senna) 17.2 mg PRN BID PRN 11/20/20 12:15 Vancomycin HCl (Vanco Per Pharmacy) 1 each PRN DAILY PRN 11/20/20 12:15 11/20/20 12:59 1 EACH Vancomycin HCl (Vancomycin Random Level) 1 each 1X ONCE 11/21/20 20:00 11/21/20 20:01 Lab Laboratory Tests Test 11/21/20 09:45 White Blood Count 8.7 x10^3/uL (4.0-11.0) Red Blood Count 3.41 x10^6/uL (4.30-5.70) Hemoglobin 9.9 g/dL (13.0-17.5) Hematocrit 29.3 % (39.0-53.0) Mean Corpuscular Volume 86 fL (79-100) Mean Corpuscular Hemoglobin 29 pg (25-35) Mean Corpuscular Hemoglobin Concent 34 g/dL (31-37) Red Cell Distribution Width 14.1 % (11.5-14.5) Platelet Count 245 x10^3/uL (140-400) Neutrophils (%) (Auto) 73 % (31-73) Lymphocytes (%) (Auto) 15 % (24-48) Monocytes (%) (Auto) 8 % (0-9) Eosinophils (%) (Auto) 3 % (0-3) Basophils (%) (Auto) 1 % (0-3) Neutrophils # (Auto) 6.4 x10^3/uL (1.8-7.7) Lymphocytes # (Auto) 1.3 x10^3/uL (1.0-4.8) Monocytes # (Auto) 0.7 x10^3/uL (0.0-1.1) Eosinophils # (Auto) 0.3 x10^3/uL (0.0-0.7) Basophils # (Auto) 0.1 x10^3/uL (0.0-0.2) Sodium Level 138 mmol/L (136-145) Potassium Level 4.1 mmol/L (3.5-5.1) Chloride Level 102 mmol/L (98-107) Carbon Dioxide Level 22 mmol/L (21-32) Anion Gap 14 (6-14) Blood Urea Nitrogen 87 mg/dL (8-26) Creatinine 7.8 mg/dL (0.7-1.3) Estimated GFR (Cockcroft-Gault) 6.6 Glucose Level 96 mg/dL (70-99) Calcium Level 9.0 mg/dL (8.5-10.1) Phosphorus Level 6.2 mg/dL (2.6-4.7) Magnesium Level 2.7 mg/dL (1.8-2.4) Results All relevant outside records, renal labs, imaging studies, telemetry/EKG's were reviewed. Justicifation of Admission Dx: Justifications for Admission: Justification of Admission Dx: Yes DENISHA MELARA MD Nov 21, 2020 11:58
--- NOTE | 2020-11-21 12:51 | NUR ---
SW following. Discussed with RN, pt from [facility] with [facility], room air, NPO. SW consult for possible change of hospice company. SW met with pt (no isolation precautions at the time) to discuss, pt stated "whatever his son and daughter in law want." Pt gave permission for SW to contact his family. Pt scheduled for a toe amputation on Saturday (11/23/2020). SW contacted pt's son, Phil ([phone]), spoke with pt's daughter, Duran. They do not feel [facility] were being honest with them, and didn't like what [facility] had been saying about the jail. Per Duran, pt is going back and forth about dialysis, and whether he should be on hospice or not. Per Duran' understanding pt was put on hospice due to refusing dialysis. Regardless of whether pt is needing hospice or not, the plan is for pt to return to [facility]. Duran and Phil are going to discuss today what they want to do. Lisbeth ARGUETA's phone number provided to Duran for tomorrow (11/22/2020). REZA will continue to follow.
[2020-11-21] MEDS: CEFEPIME HCL IV Push 2 GM VIAL. IVP SCH (14:07)
[2020-11-21] MEDS: VANCOMYCIN PER PHARMACY MC PRN (17:07)
[2020-11-21] MEDS ORDERED: VANCOMYCIN RANDOM LEVEL. MC ONE (20:00)
[2020-11-22 03:00] VITALS: BP 174/62
[2020-11-22] MEDS: HEPARIN for SUB-Q USE 5,000 UNIT/ML VIAL. SQ SCH ×3 (06:35→21:52)
[2020-11-22 07:00] VITALS: BP 155/55
--- NOTE | 2020-11-22 09:28 | NUR ---
SW following. Discussed with RN, pt from [facility] with [facility]. Pt having toe amputation tomorrow (11/23/2020). Pt and family do not want to return with [facility], and are going to discuss with each other and let SW know what they are wanting to do. SW will continue to follow.
--- NOTE | 2020-11-22 10:19 | PDOC ---
[employer] PROGRESS NOTE Date of Service DOS: DATE: 11/22/20 TIME: 10:16 Chief Complaint Chief Complaint Acute right third toe gangrene with surrounding cellulitis Hyponatremia ESRD, currently not on hemodialysis and recent and has been on hospice in the past year Reactive leukocytosis Anemia due to ESRD History of Present Illness History of Present Illness 11/22/2020 Patient seen and examined Patient appears comfortable and in NAD Right 3rd toe examined Charts reviewed DWRN 11/21/2020 No acute events overnight. Patient is afebrile. Denies any pain to the right third toe gangrene. Evaluated by vascular surgery and the nurse practitioner. Patient is agreeable for toe amputation. Patient's chart, labs, images were reviewed and discussed with RN 89 year old male who arrives via EMS with a chief complaint of swelling, necrosis and erythema to the right foot that originates at the right third toe and radiates up the foot. Patient reportedly is on hospice but was sent in for evaluation for of this necrotic toe and states that he cannot take antibiotics. Patient describes mild to moderate pain is worse with palpation. There is been no reported fever. Patient is described as a discomfort. Of note, patient has been on hospice in the past year at [facility]. Patient has not had dialysis for the past 2-1/2 years. Family has not been happy with the current hospice company and would like to consider changing. However, they do feel that [facility] has taken good care of him and would like to return back after this hospital stay. Vitals/I&O Vitals/I&O: Vital Signs Date Time Temp Pulse Resp B/P (MAP) Pulse Ox O2 Delivery O2 Flow Rate FiO2 11/22/20 07:00 98.4 68 16 155/55 (88) 94 Room Air 98.4 I & O 11/21/20 11/21/20 11/22/20 15:00 23:00 07:00 Intake Total 1280 ml 400 ml 600 ml Output Total 400 ml 60 ml 300 ml Balance 880 ml 340 ml 300 ml Physical Exam General: Alert, Oriented X3, Cooperative, No acute distress Heart: Regular rate, Normal S1, Normal S2 Lungs: Clear Abdomen: Normal bowel sounds, No tenderness Extremities: No cyanosis Skin: No breakdown Labs Labs: Laboratory Tests Test 11/21/20 20:48 Random Vancomycin Level 9.7 mcg/mL Assessment and Plan Assessmemt and Plan Assessment Acute right third toe gangrene with surrounding cellulitis Hyponatremia ESRD, currently not on hemodialysis and recent and has been on hospice in the past year Reactive leukocytosis Anemia due to ESRD Plan Continue wound care Continue pain meds Awaiting surgery today PT/OT Admit to medicine for further management Continue IV vancomycin and cefepime Pending blood cultures Pending vascular surgery evaluation Nephrology consult Heparin for DVT prophylaxis Protonix GI prophylaxis ADA diet Full code Discussed with RN and SW Disposition plan for toe amputation on 11/23/2020 Surrogate decision maker is the son and [id number] Problems Medical Problems: (1) Chronic renal failure Status: Acute (2) Gangrene of toe of right foot Status: Acute Comment Review of Relevant I have reviewed the following items juvenal (where applicable) has been applied. Medications: Current Medications Medications (Trade) Dose Ordered Sig/Andrés Route PRN Reason Start Time Stop Time Status Last Admin Dose Admin Vancomycin HCl (Vancomycin Random Level) 1 each 1X ONCE 11/21/20 20:00 11/21/20 20:01 DC 11/21/20 20:00 Justifications for Admission Other Justification Gangrene of the toe SARABJIT KING K III DO Nov 22, 2020 10:19
[2020-11-22] MEDS ORDERED: VANCOMYCIN 1.25 GM in IV NORMAL SALINE 250ML 250 ML IV ONE (10:30)
[2020-11-22] MEDS: VANCOMYCIN PER PHARMACY MC PRN (10:51)
--- NOTE | 2020-11-22 10:59 | PDOC ---
DATE OF SERVICE DATE: 11/22/20 TIME: 10:58 SUBJECTIVE ROS No complaints, denies SOB, No N/V. OBJECTIVE Vital Signs Vital Signs Date Time Temp Pulse Resp B/P (MAP) Pulse Ox O2 Delivery O2 Flow Rate FiO2 11/22/20 07:00 98.4 68 16 155/55 (88) 94 Room Air 98.4 I & 0 Intake and Output 11/22/20 07:00 Intake Total 2280 ml Output Total 760 ml Balance 1520 ml Intake Oral 1800 ml Tube Feeding 480 ml Output Urine Total 760 ml # Voids 2 # Bowel Movements 2 PHYSICAL EXAM Physical Exam GENERAL: NAD HEENT: OM moist LUNGS : CTA, non labored CV S1S2 ABDOMEN: Soft, nontender Ext dry gangrene of the right third toe, no LE edema NEURO- AxOx3 , no gross neuro deficit, No Asterexis No Tom DIAGNOSIS/ASSESSMENT Assessment & Plan CKD stage 5 - he has Dx of ESRD , has been on PD late 2017 , switched to HD 2/2 peritonitis . 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 Anemia HTN- anyihypertensives COMMENT/RELEVANT DATA Meds Current Medications Medications (Trade) Dose Ordered Sig/Andrés Start Time Stop Time Status Last Admin Dose Admin Acetaminophen (Tylenol) 650 mg PRN Q4HRS PRN 11/19/20 23:45 Cefepime HCl (Maxipime) 1 gm Q24H 11/22/20 14:00 Dextrose (Dextrose 50%-Water Syringe) 12.5 gm PRN Q15MIN PRN 11/20/20 12:15 Docusate Sodium (Colace) 100 mg PRN DAILY PRN 11/20/20 12:15 Fentanyl Citrate (Fentanyl 2ml Vial) 50 mcg PRN Q5MIN PRN 11/23/20 06:00 11/23/20 20:00 Heparin Sodium (Porcine) (Heparin Sodium) 5,000 unit Q12HR 11/20/20 21:00 11/20/20 12:18 DC Hydromorphone HCl (Dilaudid) 0.5 mg PRN Q10MIN PRN 11/23/20 06:00 11/23/20 20:00 Morphine Sulfate (Morphine Sulfate) 1 mg PRN Q10MIN PRN 11/23/20 06:00 11/23/20 20:00 Ondansetron HCl (Zofran) 4 mg PRN Q6HRS PRN 11/20/20 12:15 Prochlorperazine Edisylate (Compazine) 5 mg PACU PRN PRN 11/23/20 06:00 11/23/20 20:00 Ringer's Solution 1,000 ml @ 30 mls/hr Q24H 11/23/20 06:00 11/23/20 17:59 Sennosides (Senna) 17.2 mg PRN BID PRN 11/20/20 12:15 Vancomycin HCl (Vanco Per Pharmacy) 1 each PRN DAILY PRN 11/20/20 12:15 11/21/20 17:07 1 EACH Vancomycin HCl (Vancomycin Random Level) 1 each 1X ONCE 11/21/20 20:00 11/21/20 20:01 DC 11/21/20 20:00 1 EACH Vancomycin HCl (Vancomycin Trough Level) 1 each 1X ONCE 11/26/20 10:00 11/26/20 10:01 Vancomycin HCl 1.25 gm/Sodium Chloride 250 ml @ 166.667 mls/hr 1X ONCE 11/22/20 10:30 11/22/20 11:59 11/22/20 10:37 166.667 MLS/HR Vancomycin HCl 1 gm/Sodium Chloride 250 ml @ 250 mls/hr Q48H 11/24/20 10:30 Lab Laboratory Tests Test 11/21/20 20:48 Random Vancomycin Level 9.7 mcg/mL Results All relevant outside records, renal labs, imaging studies, telemetry/EKG's were reviewed. Justicifation of Admission Dx: Justifications for Admission: Justification of Admission Dx: Yes DENISHA MELARA MD Nov 22, 2020 10:59
[2020-11-22 11:00] VITALS: BP 188/75
--- NOTE | 2020-11-22 11:03 | NUR ---
Pharmacy Vancomycin Dosing Note S:Consulted to monitor and dose vancomycin started 11/19/20. O:SANG EMERSON is a 89 year old M with Cellulitis necrotic toe . Height: 5 feet, 10 inches Weight: 64.3 kg [place] Body Weight: 73.00 Adjusted Body Weight: 69.52 Dosing Weight: Actual Other Antibiotics: CEFEPIME 2G IV Q24HRS LABS: Last BUN: 87 Last Creatinine: 7.8 Creatinine Clearance: 10 mL/min Last WBC: 8.7 Last Procalcitonin: -- Tmax (past 24 hours): 98.6 Microbiology: BLOOD CX (11/19): NGTD I/O: 2280/760 Drug Levels: Last Random level: 9.7 on 11/21/20 at 1999 Last dose given 11/19/20 at 2007 Vancomycin Dosing: Loading Dose: x1 Dosing Weight: Actual Target Trough: 10-20 A: Based on: RANDOM LEVEL AND THE TIME LAST DOSE GIVEN, REDOSE WITH 1.25GM VANCOMYCIN X1. P: 1. THEN BEGIN Vancomycin 1000 mg IV q48h ON 11/24 2. Follow up Trough level on 11/26/20 at 1000 3. Pharmacy will continue to monitor, follow and adjust therapy as needed. R[facility], 11/22/20 [id number]
--- NOTE | 2020-11-22 12:18 | EKG ---
[facility] [address] [place] [address] Test Date: 2020-11-19 Test Time: 21:28:44 Pat Name: SANG EMERSON Department: Room: Gender: M Building Principal: : [id number] Requested By: LUIS MIGUEL HOBSON Order Number: [id number] Reading MD: Measurements Intervals [place] Rate: 76 P: -16 MN: 166 QRS: 158 QRSD: 104 T: 22 QT: 386 QTc: 439 Interpretive Statements SINUS RHYTHM LEFT ATRIAL ABNORMALITY ABNORMAL RIGHT AXIS DEVIATION CONSIDER RIGHT VENTRICULAR HYPERTROPHY QRS(T) CONTOUR ABNORMALITY CONSIDER HIGH LATERAL INFARCT CONSIDER INFERIOR INFARCT ST & T ABNORMALITY, CONSIDER LATERAL ISCHEMIA OR LEFT VENTRICULAR STRAIN ABNORMAL ECG RI6.02 No previous ECG available for comparison
[2020-11-22] MEDS: CEFEPIME HCL IV Push 1 GM VIAL. IVP SCH (13:42)
[2020-11-22 15:00] VITALS: BP 179/58
[2020-11-22 19:25] VITALS: BP 199/68
[2020-11-22 23:07] VITALS: BP 195/64
[2020-11-23] VITALS (13 sets, daily range): BP systolic 115–197; BP diastolic 63–77
[2020-11-23] MEDS: HEPARIN for SUB-Q USE 5,000 UNIT/ML VIAL. SQ SCH ×3 (05:48→21:58)
[2020-11-23] MEDS ORDERED: HYDROmorphone 2 MG/ML VIAL IVP PRN (06:00)
[2020-11-23] MEDS ORDERED: MORPHINE SULFATE 2 MG/ML VIAL. IVP PRN (06:00)
[2020-11-23] MEDS ORDERED: IV RINGERS,LACTATED 1000ML 1,000 ML IV SCH (06:00)
[2020-11-23] MEDS ORDERED: fentaNYL PF VIAL 100 MCG/2 ML VIAL IVP PRN ×2 (06:00)
[2020-11-23] MEDS ORDERED: PROCHLORPERAZINE 10 MG/2 ML VIAL. IVP PRN (06:00)
[2020-11-23] MEDS ORDERED: IV NORMAL SALINE 1000ML BAG 1,000 ML IV SCH (07:00)
[2020-11-23] MEDS ORDERED: fentaNYL PF VIAL 100 MCG/2 ML VIAL ONE (07:05)
[2020-11-23] MEDS ORDERED: PROPOFOL 10 MG/ML (20ML) VIAL. IV ONE (07:05)
[2020-11-23] MEDS ORDERED: LIDOCAINE 2% PF 5 ML VIAL. ONE (07:05)
--- NOTE | 2020-11-23 07:28 | PDOC ---
PROGRESS NOTES Date of Service DATE: 11/23/20 TIME: 07:24 Subjective Subjective No new complaints overnight. Objective Objective Vital Signs Date Time Temp Pulse Resp B/P (MAP) Pulse Ox O2 Delivery O2 Flow Rate FiO2 11/23/20 03:07 98.5 66 20 162/64 (96) 92 Room Air 98.5 Intake and Output 11/23/20 07:00 Intake Total 300 ml Output Total 450 ml Balance -150 ml Intake Oral 300 ml Output Urine Total 450 ml Physical Exam Abdomen: Soft, No tenderness Heart: Regular rate, No murmurs Extremities: Other (Dry gangrene distal right 3rd toe, slight erythema extending up proximal toe to base of foot. No skin breakdown on the left foot.) General: Alert, Oriented X3, No acute distress Lungs: Normal air movement Neck: Supple Assessment Assessment Problems Medical Problems: (1) Chronic renal failure Status: Acute (2) Gangrene of toe of right foot Status: Acute Plan Plan of Care I discussed options of care. Would recommend right 3rd toe amputation. Risks/benefits discussed with him. He acknowledged and elected to proceed. His healing potential is not the best due to age, renal failure, and peripheral artery disease. He does not wish for further arterial evaluation due to his severe renal failure, however. I discussed care with his son Phil prior to surgery today. Comment Review of Relevant I have reviewed the following items juvenal (where applicable) has been applied. Labs Laboratory Tests Test 11/21/20 09:45 11/21/20 20:48 White Blood Count 8.7 x10^3/uL (4.0-11.0) Red Blood Count 3.41 x10^6/uL (4.30-5.70) Hemoglobin 9.9 g/dL (13.0-17.5) Hematocrit 29.3 % (39.0-53.0) Mean Corpuscular Volume 86 fL (79-100) Mean Corpuscular Hemoglobin 29 pg (25-35) Mean Corpuscular Hemoglobin Concent 34 g/dL (31-37) Red Cell Distribution Width 14.1 % (11.5-14.5) Platelet Count 245 x10^3/uL (140-400) Neutrophils (%) (Auto) 73 % (31-73) Lymphocytes (%) (Auto) 15 % (24-48) Monocytes (%) (Auto) 8 % (0-9) Eosinophils (%) (Auto) 3 % (0-3) Basophils (%) (Auto) 1 % (0-3) Neutrophils # (Auto) 6.4 x10^3/uL (1.8-7.7) Lymphocytes # (Auto) 1.3 x10^3/uL (1.0-4.8) Monocytes # (Auto) 0.7 x10^3/uL (0.0-1.1) Eosinophils # (Auto) 0.3 x10^3/uL (0.0-0.7) Basophils # (Auto) 0.1 x10^3/uL (0.0-0.2) Sodium Level 138 mmol/L (136-145) Potassium Level 4.1 mmol/L (3.5-5.1) Chloride Level 102 mmol/L (98-107) Carbon Dioxide Level 22 mmol/L (21-32) Anion Gap 14 (6-14) Blood Urea Nitrogen 87 mg/dL (8-26) Creatinine 7.8 mg/dL (0.7-1.3) Estimated GFR (Cockcroft-Gault) 6.6 Glucose Level 96 mg/dL (70-99) Calcium Level 9.0 mg/dL (8.5-10.1) Phosphorus Level 6.2 mg/dL (2.6-4.7) Magnesium Level 2.7 mg/dL (1.8-2.4) Random Vancomycin Level 9.7 mcg/mL Microbiology 11/19/20 Blood Culture - Preliminary, Resulted NO GROWTH AFTER 3 DAYS Medications Current Medications Vancomycin HCl 250 ml @ 250 mls/hr 1X ONCE IV Last administered on 11/19/20at 20:08; Start 11/19/20 at 19:30; Stop 11/19/20 at 20:29; Status DC Ondansetron HCl (Zofran) 4 mg PRN Q8HRS PRN IV NAUSEA/VOMITING; Start 11/19/20 at 20:30; Stop 11/20/20 at 20:29; Status DC Fentanyl Citrate (Fentanyl 2ml Vial) 50 mcg PRN Q2HRS PRN IVP pain; Start 11/19/20 at 23:45 Acetaminophen (Tylenol) 650 mg PRN Q4HRS PRN PO MILD PAIN / TEMP > 100.3'F; Start 11/19/20 at 23:45 Heparin Sodium (Porcine) (Heparin Sodium) 5,000 unit Q8HRS SQ Last administered on 11/23/20at 05:48; Start 11/19/20 at 23:45 Vancomycin HCl (Vanco Per Pharmacy) 1 each PRN DAILY PRN MC SEE COMMENTS Last administered on 11/22/20at 10:51; Start 11/20/20 at 12:15 Cefepime HCl (Maxipime) 2 gm Q24H IVP Last administered on 11/21/20at 14:07; Start 11/20/20 at 14:00; Stop 11/21/20 at 16:23; Status DC Sennosides (Senna) 17.2 mg PRN BID PRN PO CONSTIPATION; Start 11/20/20 at 12:15 Docusate Sodium (Colace) 100 mg PRN DAILY PRN PO HARD STOOLS; Start 11/20/20 at 12:15 Ondansetron HCl (Zofran) 4 mg PRN Q6HRS PRN IVP NAUSEA/VOMITING; Start 11/20/20 at 12:15 Dextrose (Dextrose 50%-Water Syringe) 12.5 gm PRN Q15MIN PRN IV SEE COMMENTS; Start 11/20/20 at 12:15 Heparin Sodium (Porcine) (Heparin Sodium) 5,000 unit Q12HR SQ ; Start 11/20/20 at 21:00; Stop 11/20/20 at 12:18; Status DC Vancomycin HCl (Vancomycin Random Level) 1 each 1X ONCE MC Last administered on 11/21/20at 20:00; Start 11/21/20 at 20:00; Stop 11/21/20 at 20:01; Status DC Cefepime HCl (Maxipime) 1 gm Q24H IVP Last administered on 11/22/20at 13:42; Start 11/22/20 at 14:00 Fentanyl Citrate (Fentanyl 2ml Vial) 25 mcg PRN Q5MIN PRN IVP MILD PAIN 1-3; Start 11/23/20 at 06:00; Stop 11/23/20 at 20:00 Fentanyl Citrate (Fentanyl 2ml Vial) 50 mcg PRN Q5MIN PRN IVP MODERATE PAIN 4- 6; Start 11/23/20 at 06:00; Stop 11/23/20 at 20:00 Morphine Sulfate (Morphine Sulfate) 1 mg PRN Q10MIN PRN IVP SEVERE PAIN 7-10; Start 11/23/20 at 06:00; Stop 11/23/20 at 20:00 Ringer's Solution 1,000 ml @ 30 mls/hr Q24H IV ; Start 11/23/20 at 06:00; Stop 11/23/20 at 17:59 Hydromorphone HCl (Dilaudid) 0.5 mg PRN Q10MIN PRN IVP SEVERE PAIN 7-10, 2nd CHOICE; Start 11/23/20 at 06:00; Stop 11/23/20 at 20:00 Prochlorperazine Edisylate (Compazine) 5 mg PACU PRN PRN IVP NAUSEA, MRX1; Start 11/23/20 at 06:00; Stop 11/23/20 at 20:00 Vancomycin HCl 1.25 gm/Sodium Chloride 250 ml @ 166.667 mls/hr 1X ONCE IV Last administered on 11/22/20at 10:37; Start 11/22/20 at 10:30; Stop 11/22/20 at 11:59; Status DC Vancomycin HCl 1 gm/Sodium Chloride 250 ml @ 250 mls/hr Q48H IV ; Start 11/24/20 at 10:30 Vancomycin HCl (Vancomycin Trough Level) 1 each 1X ONCE MC ; Start 11/26/20 at 10:00; Stop 11/26/20 at 10:01 Sodium Chloride 1,000 ml @ 0 mls/hr Q0M IV ; Start 11/23/20 at 07:00 Propofol (Diprivan) 200 mg STK-MED ONCE IV ; Start 11/23/20 at 07:05; Stop 11/23/20 at 07:05; Status DC Lidocaine HCl (Lidocaine Pf 2% Vial) 5 ml STK-MED ONCE .ROUTE ; Start 11/23/20 at 07:05; Stop 11/23/20 at 07:05; Status DC Fentanyl Citrate (Fentanyl 2ml Vial) 100 mcg STK-MED ONCE .ROUTE ; Start 11/23/20 at 07:05; Stop 11/23/20 at 07:06; Status DC Active Scripts Active Albuterol Sulfate Neb Soln (Albuterol Sulfate) 1.25 Mg/3 Ml Vial.neb 1 Vial NEB Q4HRS Take a breathing treatment 4 times a day while being treated for pneumonia Reported Escitalopram Oxalate 10 Mg Tablet 1 Tab PO DAILY Ketotifen Fumarate 5 Ml Drops 1 Drop EACHEYE BID Ketoconazole 120 Ml Shampoo 1 Geraldo TP TWICE WEEKLY 30 Days with at least 3 days between each shampooing Hydralazine Hcl 10 Mg Tablet 1 Tab PO TID Glycolax (Polyethylene Glycol 3350) 119 Gm Powder 17 Gm PO UD Take according to instructions on printed sheet Zyrtec (Cetirizine Hcl) 10 Mg Tablet 0.5 Tab PO DAILY Tylenol (Acetaminophen) 325 Mg Tablet 2 Tab PO Q6HRS Remeron (Mirtazapine) 15 Mg Tablet 1 Tab PO QHS Striverdi Respimat (Olodaterol HCl) 4 Gm Mist.inhal 2.5 Gm IH DAILY Benadryl (Diphenhydramine Hcl) 25 Mg Capsule 1 Cap PO Q6HRS PRN 30 Days Furosemide 40 Mg Tablet 1 Tab PO DAILY Refresh Optive Eye Drops (Carboxymethylcellulos/Glycerin) 15 Ml Drops 1 Drop EACHEYE QIDPRN Metoprolol Tartrate 100 Mg Tablet 1 Tab PO DAILY Hydrocortisone 28.35 Gm Cream..g. 28.35 Gm TP FOR 5 DAYS NITROGLYCERIN SubLingual (Nitroglycerin) 0.4 Mg Tab.subl 0.4 Mg SL PRN Q5MIN PRN Gabapentin (Gabapentin) 300 Mg Capsule 300 Mg PO DAILY Aspir 81 (Aspirin) 81 Mg Tablet.dr 1 Tab PO DAILY Vitals/I & O Vital Sign - Last 24 Hours 11/22/20 11/22/20 11/22/20 11/22/20 08:00 11:00 15:00 19:25 Temp 98.6 98.7 97.8 98.6 98.7 97.8 Pulse 59 60 61 Resp 18 16 18 B/P (MAP) 188/75 (112) 179/58 (98) 199/68 (111) Pulse Ox 99 97 94 O2 Delivery Room Air Room Air Room Air Room Air 11/22/20 11/22/20 11/23/20 19:50 23:07 03:07 Temp 98.3 98.5 98.3 98.5 Pulse 55 66 Resp 18 20 B/P (MAP) 195/64 (107) 162/64 (96) Pulse Ox 93 92 O2 Delivery Room Air Room Air Room Air Intake and Output 11/22/20 11/22/20 11/23/20 15:00 23:00 07:00 Intake Total 60 ml 240 ml Output Total 125 ml 325 ml Balance -65 ml -85 ml Justifications for Admission Other Justification Gangrene of the toe DUTCH CONROY MD Nov 23, 2020 07:27
[2020-11-23] MEDS ORDERED: ONDANSETRON PF 4 MG/2 ML VIAL. ONE (07:40)
[2020-11-23] MEDS ORDERED: LIDOCAINE 1% Multi-Dose 20 ML VIAL. INJ ONE (07:42)
[2020-11-23] MEDS ORDERED: METOPROLOL IV PUSH 5 MG/5 ML VIAL. IVP ONE (07:47)
[2020-11-23] MEDS ORDERED: HYDROcodone/APAP 5/325MG 1 TAB TABLET PO PRN (08:00)
--- NOTE | 2020-11-23 08:08 | PDOC ---
BRIEF OPERATIVE NOTE Date: Nov 23, 2020 Pre-Op Diagnosis Right 3rd toe gangrene Peripheral artery disease Chronic renal failure (class 5) Post-Op Diagnosis same Procedure Performed Right 3rd toe amputation Surgeon Denia Anesthesia Type: MAC, Local Blood Loss 2ml Specimens Obtained toe Findings Dry gangrene of right 3rd toe Primary closure Complications none DUTCH CONROY MD Nov 23, 2020 08:08
[2020-11-23 08:15] LABS: HEMATOCRIT 27.6 % (39.0-53.0); HEMOGLOBIN 9.1 g/dL (13.0-17.5); WHITE BLOOD COUNT 8.5 x10^3/uL (4.0-11.0)
--- NOTE | 2020-11-23 08:19 | OP ---
DATE OF SURGERY: 11/23/2020 PREOPERATIVE DIAGNOSES: 1. Right third toe dry gangrene. 2. Peripheral arterial disease. 3. Chronic renal failure (class 5). 4. Hypertension. POSTOPERATIVE DIAGNOSES: 1. Right third toe dry gangrene. 2. Peripheral arterial disease. 3. Chronic renal failure (class 5). 4. Hypertension. PROCEDURES: Right third toe amputation through proximal phalanx with primary closure. SURGEON: Dewey Conroy MD ANESTHESIA: Monitored anesthesia care, local. INDICATIONS: The patient is an 89-year-old male with chronic renal failure and peripheral arterial disease, who has dry gangrene to the distal aspect of the right third toe. He presents for primary amputation. FINDINGS: The patient underwent proximal right third toe amputation through proximal phalanx. There is reasonable bleeding at the skin edges. He underwent primary closure. DESCRIPTION OF OPERATION: The patient is taken to the operating room and placed supine on the operating table. He underwent IV sedation. His right foot and ankle were prepped and draped in normal sterile fashion. A 1% lidocaine was infused as a digital block at the base of the right third toe. An elliptical incision was made just proximal to the area of gangrenous changes on the right third toe. This was extended down to the proximal phalanx. The proximal phalanx was divided with a bone cutter and trimmed proximally with a rongeur. The exposed tendons were excised. The wound was copiously irrigated with saline irrigation. Skin was reapproximated with a running 3-0 nylon suture. Xeroform followed by 4 x 4s, Kerlix and an Stanley wrap was applied. The patient tolerated the procedure well and there were no complications. ESTIMATED BLOOD LOSS: 2 mL. SPECIMEN: Right third toe. DEWEY CONORY MD DR: GEOFF/zully JOB#: [id number] / [id number] Avilez Venu MD Riffel,Nick MD
[2020-11-23 08:44] LABS: POTASSIUM 4.4 mmol/L (3.5-5.1)
[2020-11-23 08:47] LABS: CREATININE 6.9 mg/dL (0.7-1.3); GFR 7.6
--- NOTE | 2020-11-23 10:35 | PDOC ---
DATE OF SERVICE DATE: 11/23/20 TIME: 10:33 SUBJECTIVE ROS No complaints,states feels good, Had toe amputation earlier today, no complaints denies SOB, No N/V. OBJECTIVE Vital Signs Vital Signs Date Time Temp Pulse Resp B/P (MAP) Pulse Ox O2 Delivery O2 Flow Rate FiO2 11/23/20 09:42 60 18 194/71 (112) 96 Room Air 11/23/20 09:00 98.1 98.1 11/23/20 08:00 2 I & 0 Intake and Output 11/23/20 07:00 Intake Total 300 ml Output Total 450 ml Balance -150 ml Intake Oral 300 ml Output Urine Total 450 ml PHYSICAL EXAM Physical Exam GENERAL: NAD HEENT: OM moist LUNGS : CTA, non labored CV S1S2 ABDOMEN: Soft, nontender Ext dry gangrene of the right third toe, no LE edema NEURO- AxOx3 , no gross neuro deficit, No Asterexis No Tom DIAGNOSIS/ASSESSMENT Assessment & Plan CKD stage 5 - he has Dx of ESRD , has been on PD late 2017 , switched to HD 2/2 peritonitis . 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 Anemia HTN- anyihypertensives COMMENT/RELEVANT DATA Meds Current Medications Medications (Trade) Dose Ordered Sig/Andrés Start Time Stop Time Status Last Admin Dose Admin Acetaminophen (Tylenol) 650 mg PRN Q4HRS PRN 11/19/20 23:45 Acetaminophen/ Hydrocodone Bitart (Lortab 5/325) 1 tab PRN Q4HRS PRN 11/23/20 08:00 Cefepime HCl (Maxipime) 1 gm Q24H 11/22/20 14:00 11/22/20 13:42 1 GM Dextrose (Dextrose 50%-Water Syringe) 12.5 gm PRN Q15MIN PRN 11/20/20 12:15 Docusate Sodium (Colace) 100 mg PRN DAILY PRN 11/20/20 12:15 Fentanyl Citrate (Fentanyl 2ml Vial) 100 mcg STK-MED ONCE 11/23/20 07:05 11/23/20 07:06 DC Heparin Sodium (Porcine) (Heparin Sodium) 5,000 unit Q12HR 11/20/20 21:00 11/20/20 12:18 DC Hydromorphone HCl (Dilaudid) 0.5 mg PRN Q10MIN PRN 11/23/20 06:00 11/23/20 20:00 Lidocaine HCl (Lidocaine 1% 20ml Vial) 20 ml STK-MED ONCE 11/23/20 07:42 11/23/20 08:17 DC 11/23/20 07:42 12 ML Lidocaine HCl (Lidocaine Pf 2% Vial) 5 ml STK-MED ONCE 11/23/20 07:05 11/23/20 07:05 DC Metoprolol Tartrate (Lopressor Vial) 5 mg STK-MED ONCE 11/23/20 07:47 11/23/20 07:47 DC Morphine Sulfate (Morphine Sulfate) 1 mg PRN Q10MIN PRN 11/23/20 06:00 11/23/20 20:00 Ondansetron HCl (Zofran) 4 mg STK-MED ONCE 11/23/20 07:40 11/23/20 07:41 DC Prochlorperazine Edisylate (Compazine) 5 mg PACU PRN PRN 11/23/20 06:00 11/23/20 20:00 Propofol (Diprivan) 200 mg STK-MED ONCE 11/23/20 07:05 11/23/20 07:05 DC Ringer's Solution 1,000 ml @ 30 mls/hr Q24H 11/23/20 06:00 11/23/20 17:59 Sennosides (Senna) 17.2 mg PRN BID PRN 11/20/20 12:15 Sodium Chloride 1,000 ml @ 0 mls/hr Q0M 11/23/20 07:00 Vancomycin HCl (Vanco Per Pharmacy) 1 each PRN DAILY PRN 11/20/20 12:15 11/22/20 10:51 1 EACH Vancomycin HCl (Vancomycin Random Level) 1 each 1X ONCE 11/21/20 20:00 11/21/20 20:01 DC 11/21/20 20:00 1 EACH Vancomycin HCl (Vancomycin Trough Level) 1 each 1X ONCE 11/26/20 10:00 11/26/20 10:01 Vancomycin HCl 1.25 gm/Sodium Chloride 250 ml @ 166.667 mls/hr 1X ONCE 11/22/20 10:30 11/22/20 11:59 DC 11/22/20 10:37 166.667 MLS/HR Vancomycin HCl 1 gm/Sodium Chloride 250 ml @ 250 mls/hr Q48H 11/24/20 10:30 Lab Laboratory Tests Test 11/23/20 07:05 White Blood Count 8.5 x10^3/uL (4.0-11.0) Hemoglobin 9.1 g/dL (13.0-17.5) Hematocrit 27.6 % (39.0-53.0) Platelet Count 224 x10^3/uL (140-400) Sodium Level 139 mmol/L (136-145) Potassium Level 4.4 mmol/L (3.5-5.1) Chloride Level 104 mmol/L (98-107) Carbon Dioxide Level 18 mmol/L (21-32) Anion Gap 17 (6-14) Blood Urea Nitrogen 80 mg/dL (8-26) Creatinine 6.9 mg/dL (0.7-1.3) Estimated GFR (Cockcroft-Gault) 7.6 Glucose Level 71 mg/dL (70-99) Calcium Level 9.0 mg/dL (8.5-10.1) Results All relevant outside records, renal labs, imaging studies, telemetry/EKG's were reviewed. Justicifation of Admission Dx: Justifications for Admission: Justification of Admission Dx: Yes DENISHA MELARA MD Nov 23, 2020 10:35
[2020-11-23] MEDS: CEFEPIME HCL IV Push 1 GM VIAL. IVP SCH (14:07)
[2020-11-24 03:19] VITALS: BP 188/70
[2020-11-24] MEDS: HEPARIN for SUB-Q USE 5,000 UNIT/ML VIAL. SQ SCH (05:42)
[2020-11-24 07:00] VITALS: BP 200/81
[2020-11-24 08:24] LABS: GFR 7.4
[2020-11-24] MEDS ORDERED: VANCOMYCIN 1 GM in IV NORMAL SALINE 250ML 250 ML IV SCH (10:30)
--- NOTE | 2020-11-24 10:44 | SNU/HH DC ---
DISCHARGE ORDERS DISCHARGE INFORMATION: FINAL DIAGNOSIS Problems Medical Problems: (1) Chronic renal failure Status: Acute (2) Gangrene of toe of right foot Status: Acute CONDITION ON DISCHARGE: Stable CODE STATUS: Code Status: Full GROUP HOME: SNF STAY <30 DAYS: Yes HOSPICE: HOSPICE: No HOSPICE EVAL & TREAT: No LTAC: ADMIT TO LTAC: No POST DISCHARGE ORDERS: ACTIVITY ORDERS: Activity as tolerated WEIGHT BEARING STATUS: As tolerated DIET AFTER DISCHARGE: Cardiac TREATMENT/EQUIPMENT ORDERS: Physical Therapy For: Evalulation/Treatment Occupational Therapy For: Evaluation/Treatment DISCHARGE MEDICATIONS: Home Meds Active Scripts Albuterol Sulfate (ALBUTEROL SULFATE NEB SOLN) 1.25 Mg/3 Ml Vial.neb, 1 VIAL NEB Q4HRS for Wheezing, pneumonia, #75 ML Take a breathing treatment 4 times a day while being treated for pneumonia Prov:MAYRA CHUNG MD 07/07/17 Reported Medications Escitalopram Oxalate (ESCITALOPRAM OXALATE) 10 Mg Tablet, 1 TAB PO DAILY for depression, #30 TAB 3 Refills 11/20/20 Ketotifen Fumarate (KETOTIFEN FUMARATE) 5 Ml Drops, 1 DROP EACHEYE BID for conjunctivitis, #5 ML 0 Refills 11/20/20 Ketoconazole (KETOCONAZOLE) 120 Ml Shampoo, 1 IRIS TP TWICE WEEKLY for dermatitis for 30 Days, #120 ML 0 Refills with at least 3 days between each shampooing 11/20/20 Hydralazine Hcl (HYDRALAZINE HCL) 10 Mg Tablet, 1 TAB PO TID for htn, #90 TAB 3 Refills 11/20/20 Polyethylene Glycol 3350 (GLYCOLAX) 119 Gm Powder, 17 GM PO UD for constipation, #527 GM 0 Refills Take according to instructions on printed sheet 11/20/20 Cetirizine Hcl (ZYRTEC) 10 Mg Tablet, 0.5 TAB PO DAILY for itch, #30 TAB 2 Refills 11/20/20 Acetaminophen (TYLENOL) 325 Mg Tablet, 2 TAB PO Q6HRS for pain, #30 TAB 11/20/20 Mirtazapine (REMERON) 15 Mg Tablet, 1 TAB PO QHS for depression, #30 TAB 1 Refill 11/20/20 Olodaterol HCl (Striverdi Respimat) 4 Gm Mist.inhal, 2.5 GM IH DAILY for COPD, SPRAY 11/20/20 Diphenhydramine Hcl (BENADRYL) 25 Mg Capsule, 1 CAP PO Q6HRS PRN for ITCHING for 30 Days, #120 CAP 0 Refills 11/20/20 Furosemide (FUROSEMIDE) 40 Mg Tablet, 1 TAB PO DAILY for diuretic, #30 TAB 5 Refills 11/20/20 Carboxymethylcellulos/Glycerin (REFRESH OPTIVE EYE DROPS) 15 Ml Drops, 1 DROP EACHEYE QIDPRN for dry eye, #30 ML 0 Refills 10/23/18 Metoprolol Tartrate (METOPROLOL TARTRATE) 100 Mg Tablet, 1 TAB PO DAILY for blood pressure, #60 TAB 5 Refills 10/23/18 Hydrocortisone (HYDROCORTISONE) 28.35 Gm Cream..g., 28.35 GM TP FOR 5 DAYS 08/09/16 Nitroglycerin (NITROGLYCERIN SubLingual) 0.4 Mg Tab.subl, 0.4 MG SL PRN Q5MIN PRN for CHEST PAIN, BOTTLE 08/09/16 Gabapentin (GABAPENTIN ) 300 Mg Capsule, 300 MG PO DAILY for neuropathy, CAP 08/09/16 Aspirin (ASPIR 81) 81 Mg Tablet.dr, 1 TAB PO DAILY, #30 TAB 5 Refills 08/09/16 Discontinued Reported Medications Docusate Sodium (COLACE) 100 Mg Capsule, 2 CAP PO DAILY for constipation, #30 CAP 10/23/18 Cholecalciferol (Vitamin D3) (VITAMIN D3) 1,000 Unit Tablet, 2 TAB PO DAILY for supplement, #30 TAB 0 Refills 10/23/18 Furosemide (LASIX) 80 Mg Tablet, 1 TAB PO BID for duretic, #60 TAB 3 Refills 10/23/18 Miconazole Nitrate (ANTIFUNGAL CREAM) 14 Gm Cream..g., 14 GM TP DAILY FOR 10 DAYS PER [facility] 08/09/16 Oxymetazoline Hcl (OXYMETAZOLINE HCL) 15 Ml Forgan, 15 ML NS PRN BID PRN for CONGESTION, #2 SPRAY 2 SPRAYS BID PRN 08/09/16 SARABJIT KING III DO Nov 24, 2020 10:44
--- NOTE | 2020-11-24 11:00 | PDOC ---
[employer] PROGRESS NOTE Date of Service DOS: DATE: 11/24/20 TIME: 10:57 Chief Complaint Chief Complaint Acute right third toe gangrene with surrounding cellulitis Hyponatremia ESRD, currently not on hemodialysis and recent and has been on hospice in the past year Reactive leukocytosis Anemia due to ESRD History of Present Illness History of Present Illness 11/24/2020 Patient seen and examined Charts reviewed DWRN Patient is POD 1 from right 3rd toe amputation 11/22/2020 Patient seen and examined Patient appears comfortable and in NAD Right 3rd toe examined Charts reviewed DWRN 11/21/2020 No acute events overnight. Patient is afebrile. Denies any pain to the right third toe gangrene. Evaluated by vascular surgery and the nurse practitioner. Patient is agreeable for toe amputation. Patient's chart, labs, images were reviewed and discussed with RN 89 year old male who arrives via EMS with a chief complaint of swelling, necrosis and erythema to the right foot that originates at the right third toe and radiates up the foot. Patient reportedly is on hospice but was sent in for evaluation for of this necrotic toe and states that he cannot take antibiotics. Patient describes mild to moderate pain is worse with palpation. There is been no reported fever. Patient is described as a discomfort. Of note, patient has been on hospice in the past year at [facility] with [facility] hospice. Patient has not had dialysis for the past 2-1/2 years. Family has not been happy with the current hospice company and would like to consider changing. However, they do feel that [facility] has taken good care of him and would like to return back after this hospital stay. Vitals/I&O Vitals/I&O: Vital Signs Date Time Temp Pulse Resp B/P (MAP) Pulse Ox O2 Delivery O2 Flow Rate FiO2 11/24/20 08:00 Room Air 11/24/20 07:00 97.5 65 19 200/81 (120) 98 97.5 11/23/20 19:24 I & O 11/23/20 11/23/20 11/24/20 15:00 23:00 07:00 Intake Total 100 ml 350 ml 100 ml Output Total 2 ml 50 ml Balance 98 ml 350 ml 50 ml Physical Exam General: Alert, Oriented X3, No acute distress Heart: Regular rate, Normal S1, Normal S2, No murmurs Lungs: Clear Abdomen: Normal bowel sounds, Soft, No tenderness Extremities: No clubbing, No cyanosis, Other Skin: No breakdown Labs Labs: Laboratory Tests Test 11/24/20 06:50 Blood Urea Nitrogen 76 mg/dL (8-26) Creatinine 7.0 mg/dL (0.7-1.3) Estimated GFR (Cockcroft-Gault) 7.4 Assessment and Plan Assessmemt and Plan Assessment Acute right third toe gangrene with surrounding cellulitis Hyponatremia ESRD, currently not on hemodialysis and recent and has been on hospice in the past year Reactive leukocytosis Anemia due to ESRD Plan Probable DC to SNU Continue the following until then: DNR DVT PPX Continue home meds Trend labs Appreciate subspecialty input Problems Medical Problems: (1) Chronic renal failure Status: Acute (2) Gangrene of toe of right foot Status: Acute Comment Review of Relevant I have reviewed the following items juvenal (where applicable) has been applied. Medications: Current Medications Medications (Trade) Dose Ordered Sig/Andrés Route PRN Reason Start Time Stop Time Status Last Admin Dose Admin Vancomycin HCl 1 gm/Sodium Chloride 250 ml @ 250 mls/hr Q48H IV 11/24/20 10:30 11/24/20 10:16 Justifications for Admission Other Justification Gangrene of the toe SARABJIT KING III DO Nov 24, 2020 11:00
--- NOTE | 2020-11-24 11:01 | DS ---
DATE OF DISCHARGE: 11/24/2020 ADMISSION DIAGNOSIS: Right third toe gangrene. DISCHARGE DIAGNOSES: Postoperative day #1 right third toe amputation, history of hypertension, renal failure, pulmonary fibrosis, lymphadenopathy, cardiac stents, peritoneal dialysis, and dialysis shunt. HOSPITAL COURSE: The patient is a pleasant elderly male who presented with right third toe gangrene. He was admitted. We consulted Orthopedics. He was taken for amputation yesterday. Clinically, today he is back to his baseline. We plan to discharge to assisted. DISPOSITION: Skilled. ACTIVITY: As tolerated. DIET: Low sodium. MEDICATIONS: Please see the MRAD. TOTAL TIME: 34 minutes. SARABJIT KING DO DR: JEET/zully JOB#: [id number] / [id number]
[2020-11-24 11:03] VITALS: BP 175/88
--- NOTE | 2020-11-24 11:22 | PDOC ---
DATE OF SERVICE DATE: 11/24/20 TIME: 11:22 SUBJECTIVE ROS No complaints,states feels good, anticipating dc today OBJECTIVE Vital Signs Vital Signs Date Time Temp Pulse Resp B/P (MAP) Pulse Ox O2 Delivery O2 Flow Rate FiO2 11/24/20 11:03 97.0 72 19 175/88 (117) 97 Room Air 97.0 11/23/20 19:24 I & 0 Intake and Output 11/24/20 07:00 Intake Total 550 ml Output Total 52 ml Balance 498 ml Intake Oral 550 ml Output Urine Total 50 ml Estimated Blood Loss 2 ml # Voids 2 PHYSICAL EXAM Physical Exam GENERAL: NAD HEENT: OM moist LUNGS : CTA, non labored CV S1S2 ABDOMEN: Soft, nontender Ext dry gangrene of the right third toe, no LE edema NEURO- AxOx3 , no gross neuro deficit, No Asterexis No Tom DIAGNOSIS/ASSESSMENT Assessment & Plan CKD stage 5 - he has Dx of ESRD , has been on PD late 2017 , switched to HD 2/2 peritonitis . 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 Anemia HTN- anyihypertensives Anticipating dc today per nursing COMMENT/RELEVANT DATA Meds Current Medications Medications (Trade) Dose Ordered Sig/Andrés Start Time Stop Time Status Last Admin Dose Admin Acetaminophen (Tylenol) 650 mg PRN Q4HRS PRN 11/19/20 23:45 11/23/20 18:29 650 MG Acetaminophen/ Hydrocodone Bitart (Lortab 5/325) 1 tab PRN Q4HRS PRN 11/23/20 08:00 Cefepime HCl (Maxipime) 1 gm Q24H 11/22/20 14:00 11/23/20 14:07 1 GM Dextrose (Dextrose 50%-Water Syringe) 12.5 gm PRN Q15MIN PRN 11/20/20 12:15 Docusate Sodium (Colace) 100 mg PRN DAILY PRN 11/20/20 12:15 Fentanyl Citrate (Fentanyl 2ml Vial) 100 mcg STK-MED ONCE 11/23/20 07:05 11/23/20 07:06 DC Heparin Sodium (Porcine) (Heparin Sodium) 5,000 unit Q12HR 11/20/20 21:00 11/20/20 12:18 DC Hydromorphone HCl (Dilaudid) 0.5 mg PRN Q10MIN PRN 11/23/20 06:00 11/23/20 20:00 DC Lidocaine HCl (Lidocaine 1% 20ml Vial) 20 ml STK-MED ONCE 11/23/20 07:42 11/23/20 08:17 DC 11/23/20 07:42 12 ML Lidocaine HCl (Lidocaine Pf 2% Vial) 5 ml STK-MED ONCE 11/23/20 07:05 11/23/20 07:05 DC Metoprolol Tartrate (Lopressor Vial) 5 mg STK-MED ONCE 11/23/20 07:47 11/23/20 07:47 DC Morphine Sulfate (Morphine Sulfate) 1 mg PRN Q10MIN PRN 11/23/20 06:00 11/23/20 20:00 DC Ondansetron HCl (Zofran) 4 mg STK-MED ONCE 11/23/20 07:40 11/23/20 07:41 DC Prochlorperazine Edisylate (Compazine) 5 mg PACU PRN PRN 11/23/20 06:00 11/23/20 20:00 DC Propofol (Diprivan) 200 mg STK-MED ONCE 11/23/20 07:05 11/23/20 07:05 DC Ringer's Solution 1,000 ml @ 30 mls/hr Q24H 11/23/20 06:00 11/23/20 17:59 DC Sennosides (Senna) 17.2 mg PRN BID PRN 11/20/20 12:15 Sodium Chloride 1,000 ml @ 0 mls/hr Q0M 11/23/20 07:00 Vancomycin HCl (Vanco Per Pharmacy) 1 each PRN DAILY PRN 11/20/20 12:15 11/22/20 10:51 1 EACH Vancomycin HCl (Vancomycin Random Level) 1 each 1X ONCE 11/21/20 20:00 11/21/20 20:01 DC 11/21/20 20:00 1 EACH Vancomycin HCl (Vancomycin Trough Level) 1 each 1X ONCE 11/26/20 10:00 11/26/20 10:01 Vancomycin HCl 1.25 gm/Sodium Chloride 250 ml @ 166.667 mls/hr 1X ONCE 11/22/20 10:30 11/22/20 11:59 DC 11/22/20 10:37 166.667 MLS/HR Vancomycin HCl 1 gm/Sodium Chloride 250 ml @ 250 mls/hr Q48H 11/24/20 10:30 11/24/20 10:16 250 MLS/HR Lab Laboratory Tests Test 11/24/20 06:50 Blood Urea Nitrogen 76 mg/dL (8-26) Creatinine 7.0 mg/dL (0.7-1.3) Estimated GFR (Cockcroft-Gault) 7.4 Results All relevant outside records, renal labs, imaging studies, telemetry/EKG's were reviewed. Justicifation of Admission Dx: Justifications for Admission: Justification of Admission Dx: Yes DENISHA MELARA MD Nov 24, 2020 11:22
--- NOTE | 2020-11-24 13:19 | NUR ---
Discharge instructions and belongings reviewed with patient, verbalized understanding. [facility] @[phone]. Patient to be transported @[id number].
--- NOTE | 2020-11-24 13:59 | NUR ---
Wound/Ostomy Care Wound Type/Assessment: Right 3rd toe closed amputation, sutures intact. Wound cleansed and photographed for discharge. Treatment Recommendations/Plan: xeroform and gauuze applied, recommend to change every 2 days. Education provided: WC POC and PU prevention, pt will need reinforcement d/t mental status. Offloading surface/device: na Recommended Referrals/Tests: none Discharge Recommendations for dressings: continue as above noted. follow up with vascular surgeon as ordered.
== END 2020-11-24 15:53 | DRG 579 ==
LOC: ER 18:58 → ED HOLD 22:07 → UNDOADMIN 22:07 → CVICU 22:07 → ED HOLD 11-20 04:00 → CVICU 11-20 04:00 → 4 NORTH 11-21 17:59 → UNDODISIN 11-24 15:53
PROVIDERS: ADMIT Internal Medicine; ATTEND Internal Medicine
PROC: 0Y6T0Z1 Detachment at Right 3rd Toe, High, Open Approach (ICD-10-PCS; principal; 2020-11-23 07:30)
DX: L03.031 Cellulitis of right toe (principal); N18.6 End stage renal disease; I96 Gangrene, not elsewhere classified; E87.1 Hypo-osmolality and hyponatremia; I12.0 Hypertensive chronic kidney disease with stage 5 chronic kidney disease or end stage renal disease; D63.1 Anemia in chronic kidney disease; J84.10 Pulmonary fibrosis, unspecified; Z51.5 Encounter for palliative care; Z82.49 Family history of ischemic heart disease and other diseases of the circulatory system; Z95.5 Presence of coronary angioplasty implant and graft; Z99.2 Dependence on renal dialysis; E21.3 Hyperparathyroidism, unspecified; Z88.0 Allergy status to penicillin; Z88.2 Allergy status to sulfonamides; Z88.8 Allergy status to other drugs, medicaments and biological substances; Z20.828 Contact with and (suspected) exposure to other viral communicable diseases
CPT/HCPCS: 36415; 71045; 73630; 80048; 80053; 80202; 82565; 83605; 83735; 84100; 84520; 85025; 85027; 85610; 85730; 86140; 87040; 87426; 88305; 88311; 93005; 93926; 96360; 96361; J0692; J1644; J2405; J2704; J3010; J3370; J3490; J7050; U0003; 97535-GO; 99285-25; A4461; G0378; J7030

== ENCOUNTER 2020-11-27 09:57 | Emergency (ER) | payer MEDICARE, OTHER ==
[~2020-11-27] VITALS: Ht 172.7 cm; Wt 80.0 kg
[~2020-11-27 09:57] MED LIST changes: +ACET325T9 PO; +CETI10TA74 PO; +DIPH25CA58 PO; +ESCITALOPRAM OX10 MG PO; +FURO40TA4 PO; +HYDR-2867 PO; +KETO120S4 TP; +KETO5DRO89 EACHEYE; +MIRT-36 PO; +OLOD4MIS2 IH; +POLY119P19 PO
[2020-11-27 10:59] LABS: BASO # 0.1 x10^3/uL (0.0-0.2); BASO % 1 % (0-3); EOS # 0.3 x10^3/uL (0.0-0.7); EOS % 2 % (0-3); HEMATOCRIT 33.6 % (39.0-53.0); HEMOGLOBIN 10.7 g/dL (13.0-17.5); LYMPH # 2.7 x10^3/uL (1.0-4.8); LYMPH % 21 % (24-48); MEAN CORPUSCULAR HEMOGLOBIN 28 pg (25-35); MEAN CORPUSCULAR HGB CONC 32 g/dL (31-37); MEAN CORPUSCULAR VOLUME 88 fL (79-100); MONO # 1.1 x10^3/uL (0.0-1.1); MONO % 8 % (0-9); NEUT # 8.9 x10^3/uL (1.8-7.7); NEUT % 68 % (31-73); PLATELET COUNT 307 x10^3/uL (140-400); RED BLOOD COUNT 3.81 x10^6/uL (4.30-5.70); RED CELL DISTRIBUTION WIDTH 14.5 % (11.5-14.5)
[2020-11-27 11:01] LABS: BILIRUBIN,URINE NEGATIVE (NEG); CLARITY,URINE CLEAR; COLOR,URINE YELLOW; NITRITE,URINE NEGATIVE (NEG); PH,URINE 5.5 (<5.0-8.0); PROTEIN,URINE >=300 mg/dL (NEG-TRACE); UROBILINOGEN,URINE 0.2 mg/dL (0.2 mg/dL)
[2020-11-27 11:12] LABS: AMORPHOUS SEDIMENT,UR PRESENT /HPF; BACTERIA,URINE FEW /HPF (0-FEW); HYALINE CASTS, URINE OCCASIONAL /HPF; WBC,URINE RARE /HPF (0-4)
[2020-11-27 11:17] LABS: CALCIUM 10.3 mg/dL (8.5-10.1); CREATININE 9.9 mg/dL (0.7-1.3)
[2020-11-27 11:30] LABS: ALBUMIN 3.1 g/dL (3.4-5.0); ALBUMIN/GLOBULIN RATIO 0.6 (1.0-1.7); MAGNESIUM 3.4 mg/dL (1.8-2.4); TOTAL BILIRUBIN 0.3 mg/dL (0.2-1.0); TOTAL PROTEIN 8.6 g/dL (6.4-8.2)
[2020-11-27] MEDS ORDERED: IV NORMAL SALINE 1000ML BAG 1,000 ML IV ONE ×2 (11:45→13:45)
[2020-11-27] MEDS ORDERED: cloNIDine HCL 0.1 MG TABLET PO ONE (14:15)
--- NOTE | 2020-11-27 14:15 | PHYS DOC ---
Past Medical History Past Medical History: CHF, COPD, Hypertension, Renal Disease, Renal Failure Additional Past Medical Histor: PULM FIBROSIS,SUBCARINAL LYMPHADENOPATHY,HEART FAILURE Past Surgical History: Other Additional Past Surgical Histo: STENTS,SINUS, peritoneal dialysis, R ant chest dialysis shunt, TOE AMP. Smoking Status: Unknown if ever smoked Alcohol Use: None Drug Use: None General Adult EDM: Chief Complaint: ALTERED MENTAL STATUS HPI: HPI: Patient is a 89 year old male who was brought here by EMS from the assisted due to altered mental status. Patient had not been eating or drinking for the last few days. He has history of dementia, end-stage renal failure, was IN hospice. He was taken off hospice in order to have his right total amputation on November 19, 2020. Patient did not want to have hemodialysis done. HIS fami ly stated that they will try to arrange for hospice care again next week. There is no report of fever, no headache, no chest pain, no abdominal pain, no nausea vomiting. Review of Systems: Review of Systems: Constitutional: Denies fever or chills. [] Eyes: Denies change in visual acuity. [] HENT: Denies nasal congestion or sore throat. [] Respiratory: Denies cough or shortness of breath. [] Cardiovascular: Denies chest pain or edema. [] GI: Denies abdominal pain, nausea, vomiting, bloody stools or diarrhea. [] : Denies dysuria. [] Musculoskeletal: Denies back pain or joint pain. [] Integument: Denies rash. [] Neurologic: Denies headache, focal weakness or sensory changes. Positive for confusion and generalized weakness Endocrine: Denies polyuria or polydipsia. [] Lymphatic: Denies swollen glands. [] Psychiatric: Denies depression or anxiety. [] Heart Score: Risk Factors: Risk Factors: DM, Current or recent (<one month) smoker, HTN, HLP, family history of CAD, obesity. Risk Scores: Score 0 - 3: 2.5% MACE over next 6 weeks - Discharge Home Score 4 - 6: 20.3% MACE over next 6 weeks - Admit for Clinical Observation Score 7 - 10: 72.7% MACE over next 6 weeks - Early Invasive Strategies Current Medications: Current Medications Medications (Trade) Dose Ordered Sig/Andrés Start Time Stop Time Status Last Admin Dose Admin Clonidine HCl (Catapres) 0.2 mg 1X ONCE 11/27/20 14:15 11/27/20 14:16 Sodium Chloride 1,000 ml @ 1,000 mls/hr 1X ONCE 11/27/20 13:45 11/27/20 14:44 Allergies: Allergies: Allergies Coded Allergies Type Severity Reaction Last Updated Verified JACK Inhibitors Allergy Intermediate 11/24/20 Yes Penicillins Allergy Intermediate 08/09/16 Yes Sulfa (Sulfonamide Antibiotics) Allergy Intermediate 08/09/16 Yes cephalexin Allergy Intermediate 10/27/18 Yes ciprofloxacin Allergy Intermediate 10/23/18 Yes doxycycline Allergy Intermediate 10/23/18 Yes erythromycin base Allergy Intermediate 10/23/18 Yes fluticasone Allergy Intermediate 08/09/16 Yes isosorbide Allergy Intermediate 10/23/18 Yes nifedipine Allergy Intermediate 10/23/18 Yes prednisone Allergy Intermediate 10/23/18 Yes salmeterol Allergy Intermediate DUONEB OK 07/07/17 Yes spironolactone Allergy Intermediate 08/09/16 Yes tamsulosin Allergy Intermediate 10/23/18 Yes codeine Adverse Reaction Intermediate Nausea/Vomiting 10/25/18 Yes Physical Exam: PE: Constitutional: Well developed, well nourished, no acute distress, non-toxic appearance. [] HENT: Normocephalic, atraumatic, bilateral external ears normal, oropharynx is very dried, no oral exudates, nose normal. [] Eyes: PERRLA, EOMI, conjunctiva normal, no discharge. [] Neck: Normal range of motion, no tenderness, supple, no stridor. [] Cardiovascular:Heart rate regular rhythm, no murmur [] Lungs & Thorax: Bilateral breath sounds clear to auscultation [] Abdomen: Bowel sounds normal, soft, no tenderness, no masses, no pulsatile masses. [] Skin: Warm, dry, no erythema, no rash. [] Back: No tenderness, no CVA tenderness. [] Extremities: No tenderness, no cyanosis, no clubbing, ROM intact, no edema. [] Neurologic: confused, disoriented, moved all extremities. Psychologic: Affect normal, judgement normal, mood normal. [] Current Patient Data: Labs: Laboratory Tests Test 11/27/20 10:50 White Blood Count 13.0 x10^3/uL (4.0-11.0) H Red Blood Count 3.81 x10^6/uL (4.30-5.70) L Hemoglobin 10.7 g/dL (13.0-17.5) L Hematocrit 33.6 % (39.0-53.0) L Mean Corpuscular Volume 88 fL (79-100) Mean Corpuscular Hemoglobin 28 pg (25-35) Mean Corpuscular Hemoglobin Concent 32 g/dL (31-37) Red Cell Distribution Width 14.5 % (11.5-14.5) Platelet Count 307 x10^3/uL (140-400) Neutrophils (%) (Auto) 68 % (31-73) Lymphocytes (%) (Auto) 21 % (24-48) L Monocytes (%) (Auto) 8 % (0-9) Eosinophils (%) (Auto) 2 % (0-3) Basophils (%) (Auto) 1 % (0-3) Neutrophils # (Auto) 8.9 x10^3/uL (1.8-7.7) H Lymphocytes # (Auto) 2.7 x10^3/uL (1.0-4.8) Monocytes # (Auto) 1.1 x10^3/uL (0.0-1.1) Eosinophils # (Auto) 0.3 x10^3/uL (0.0-0.7) Basophils # (Auto) 0.1 x10^3/uL (0.0-0.2) Urine Collection Type Unknown Urine Color Yellow Urine Clarity Clear Urine pH 5.5 (<5.0-8.0) Urine Specific [place] 1.015 (1.000-1.030) Urine Protein >=300 mg/dL (NEG-TRACE) Urine Glucose (UA) Negative mg/dL (NEG) Urine Ketones (Stick) Trace mg/dL (NEG) Urine Blood Moderate (NEG) Urine Nitrite Negative (NEG) Urine Bilirubin Negative (NEG) Urine Urobilinogen Dipstick 0.2 mg/dL (0.2 mg/dL) Urine Leukocyte Esterase Negative (NEG) Urine RBC 11-20 /HPF (0-2) Urine WBC Rare /HPF (0-4) Urine Squamous Epithelial Cells Few /LPF Urine Amorphous Sediment Present /HPF Urine Bacteria Few /HPF (0-FEW) Urine Hyaline Casts Occasional /HPF Urine Mucus Slight /LPF Sodium Level 148 mmol/L (136-145) H Potassium Level 5.0 mmol/L (3.5-5.1) Chloride Level 110 mmol/L (98-107) H Carbon Dioxide Level 16 mmol/L (21-32) L Anion Gap 22 (6-14) H Blood Urea Nitrogen 104 mg/dL (8-26) H Creatinine 9.9 mg/dL (0.7-1.3) H Estimated GFR (Cockcroft-Gault) 5.0 BUN/Creatinine Ratio 11 (6-20) Glucose Level 78 mg/dL (70-99) Lactic Acid Level 1.1 mmol/L (0.4-2.0) Calcium Level 10.3 mg/dL (8.5-10.1) H Magnesium Level 3.4 mg/dL (1.8-2.4) H Total Bilirubin 0.3 mg/dL (0.2-1.0) Aspartate Amino Transferase (AST) 21 U/L (15-37) Alanine Aminotransferase (ALT) 16 U/L (16-63) Alkaline Phosphatase 89 U/L (46-116) Total Protein 8.6 g/dL (6.4-8.2) H Albumin 3.1 g/dL (3.4-5.0) L Albumin/Globulin Ratio 0.6 (1.0-1.7) L Laboratory Tests 11/27/20 10:50 Laboratory Tests 11/27/20 10:50 Vital Signs: Vital Signs Date Time Temp Pulse Resp B/P (MAP) Pulse Ox O2 Delivery O2 Flow Rate FiO2 11/27/20 12:59 62 15 99 11/27/20 10:00 98.7 178/77 (110) Room Air 98.7 EKG: EKG: [] Radiology/Procedures: Radiology/Procedures: [] Course & Med Decision Making: Course & Med Decision Making Pertinent Labs and Imaging studies reviewed. (See chart for details) Patient is an 89-year-old male with history of dementia, end-stage renal failure, was on hospice. He was taken off hospice in order to have his right total amputation on November 19, 2020. Patient did not want to have hemodialysis done. Patient was found to be dehydrated, patient was given IV fluid. After 1 L normal saline given patient became more awake, alert, he was talking with his daughter. He was oriented to person and place. His blood pressure was elevated, he has not taken his blood pressure medication today. He will be discharged back to the assisted. His family said they will arrange for hospice care tomorrow. Micheal Disclaimer: Micheal Disclaimer: This electronic medical record was generated, in whole or in part, using a voice recognition dictation system. Departure Departure Impression: Primary Impression: Dehydration Additional Impressions: Chronic renal failure HTN (hypertension) Disposition: 01 DC HOME SELF CARE/HOMELESS Condition: IMPROVED Referrals: TY SANDOVAL MD (PCP) Patient Instructions: Dehydration, Adult, Hypertension, Kidney Failure Additional Instructions: Thank you for visiting our Emergency Department. We appreciate you trusting us with your care. If any additional problems come up don't hesitate to return to visit us. Please follow up with your primary care provider so they can plan additional care if needed and know about the problem that you had. If symptoms worsen come back to the Emergency Department. Any concerning symptoms that start such as chest pain, shortness of air, weakness or numbness on one side of the body, running high fevers or any other concerning symptoms return to the ER. DENISSE TAYLOR DO Nov 27, 2020 14:15
[2020-11-27 14:29] VITALS: BP 221/86
== END 2020-11-27 16:30 | disposition home or self-care (01) ==
LOC: ER 09:57
DX: E86.0 Dehydration (principal); F44.89 Other dissociative and conversion disorders; I12.9 Hypertensive chronic kidney disease with stage 1 through stage 4 chronic kidney disease, or unspecified chronic kidney disease; N18.9 Chronic kidney disease, unspecified; I50.9 Heart failure, unspecified; J44.9 Chronic obstructive pulmonary disease, unspecified; Z98.890 Other specified postprocedural states; Z88.0 Allergy status to penicillin; Z88.1 Allergy status to other antibiotic agents; Z88.2 Allergy status to sulfonamides; Z88.6 Allergy status to analgesic agent; Z88.8 Allergy status to other drugs, medicaments and biological substances; Z88.5 Allergy status to narcotic agent
CPT/HCPCS: 36415; 80053; 81001; 83605; 83735; 85025; 96360; 96361; 99285; J7030; P9612